=== PATIENT | male | born 1970 | race Caucasian/White ===

== ENCOUNTER 2024-02-15 15:00 | Emergency (ER) | payer OTHER, SELFPAY ==
--- NOTE | ~2024-02-15 | US_ITS ---
EXAMINATION: US TRIPLEX UPPER EXTREMITY, RIGHT CLINICAL INFORMATION: Redness, pain COMPARISON: None available. TECHNIQUE: Color-flow triplex imaging with spectral analysis and compression Doppler was performed on the right upper extremity. FINDINGS: The right internal jugular, subclavian, and axillary veins are patent and free of thrombus. The imaged segment of the right brachiocephalic vein is patent. Spectral doppler waveforms are normal. The brachial, basilic, radial, and ulnar veins are patent and compressible. There is noncompressible thrombus in the proximal and mid cephalic vein. US/US venous duplex UE RT IMPRESSION: 1. No evidence of deep venous thrombosis involving the right upper extremity. 2. Superficial thrombophlebitis with noncompressible thrombus in the proximal and mid cephalic vein. Electronically signed by: Gurmeet Tapia MD 02/15/2024 04:39 PM EDT
[2024-02-15 15:09] VITALS: BP 100/76; PULSE 100; RESP 19; TEMP 36.1; O2SAT 97; BMI 23.7
--- NOTE | 2024-02-15 15:09 | ED_ITS ---
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 He reports some irritation to the right bicep for the last several days but did not notice the bump until last night. He denies any injury. Pain is worse with palpation, none at rest. He recently had blood work done in both his right AC and left AC area and has bruising to his arm. He denies any chest pain or shortness of breath. He is not on anticoagulation but takes a daily aspirin. MD Complaint: extremity swelling Onset (ago): day(s) Pain Consistency: constant Location: right and upper extremity Radiation: distal Relieving factors: nothing Exacerbating factors: nothing Related Data Allergies Allergy/AdvReac Type Severity Reaction Status Date / Time NORBERTO Inhibitors Allergy Cough Verified 02/15/24 15:10 Review of Systems Review of Systems: Yes all other systems are reviewed and are negative PMFSH Social History Social History Advance Directives: No Advance Directives Information Provided: No Do you have a plan to hurt others: No Plan Physical Exam Vital Signs: Vital Signs: Last Vital Signs Temp 97.9 F 02/15/24 18:02 Pulse 89 02/15/24 18:02 Resp 18 02/15/24 18:02 BP 111/75 02/15/24 18:02 Pulse Ox 99 02/15/24 18:02 O2 Del Method Room Air 02/15/24 18:02 BMI result Body Mass Index 23.7 Appearance: Alert. Oriented X3. No acute distress. HEENT: normal inspection CVS: Normal heart rate and rhythm. Pulses normal. Respiratory: No respiratory distress. CV: Regular rate and rhythm, no murmur Skin: Skin warm and dry. Normal skin color. Normal skin turgor. No rashes. Extremities: Right distal biceps with a tender, firm, erythematous and warm area of approximately 2-3 cm, mild induration. No fluctuance. Neurovascularly intact distally. No swelling of the arm. Neuro: Oriented X 3. Grossly normal, nonfocal Course Course Course Narrative: This is a Rapid Medical Examination (RME) performed by Jen Mccormack PA-C in triage. Full HPI, ROS, assessment and treatment plan per primary provider in the Main ED. 53 yo male with history of heart transplant in September 2023 at [facility] who presents to the ER for evaluation of a tender bump on the right bicep area. tender, erythematous area on the right bicep with superficial mass. Plan: US RUE r/o DVT Medical Decision Making Medical Decision Making MDM Narrative: 53-year-old male with history of heart transplant in September presents to the ER for evaluation of a mildly tender, erythematous mass to the distal right biceps that started a couple of days ago, the mass noted last night. Exam is consistent with superficial thrombophlebitis. Ultrasound was done which confirmed this. No evidence of deep vein thrombosis. We discussed the results and management including warm compresses, compression, elevation, NSAIDs. He is going to discuss the results with his transplant doctor tomorrow. Place an Norberto wrap for compression and support. Comfortable discharge home with supportive care and outpatient follow-up. Differential Diagnosis Differential Diagnoses: The differential diagnosis associated with the presentation includes Cellulitis, superficial thrombophlebitis, DVT Admission/Observation Consideration of admission/observation: Escalation of care including admission/observation considered Independent Interpretation I performed an independent interpretation of an: Ultrasound Interpretation: No DVT appreciated Radiology Impression Discussion of test interpretation with radiology: I have reviewed the radiologist's reading. Radiologist Impression: US/US venous duplex UE RT IMPRESSION: 1. No evidence of deep venous thrombosis involving the right upper extremity. 2. Superficial thrombophlebitis with noncompressible thrombus in the proximal and mid cephalic vein. Prescription Management I considered prescription management with: Pain Medication and Antibiotic Chronic Conditions Patient?s care impacted by: Other (Immunocompromised due to heart transplant) Critical Care Time Critical Care Time Critical Care Time: No Discharge Plan Discharge Clinical Impression: Superficial thrombophlebitis Qualifiers: Superficial thrombophlebitis-Involved body area: upper extremity Laterality: right Qualified Code(s): I80.8 - Phlebitis and thrombophlebitis of other sites Patient Disposition: Home, Self-Care Instructions: Superficial Thrombophlebitis (ED) Additional Instructions: Your ultrasound today showed a superficial blood clot in the cephalic vein. There were no blood clots in the deep venous system. Treatment is warm compresses, elevation, compression. Talk to your doctor about ability to use NSAIDs like ibuprofen, Aleve, Motrin. It can help with pain and swelling. Follow-up with your transplant providers regarding further management. If you develop new or worsening symptoms call 911 or come back to the ER for further evaluation. EXAMINATION: US TRIPLEX UPPER EXTREMITY, RIGHT CLINICAL INFORMATION: Redness, pain COMPARISON: None available. TECHNIQUE: Color-flow triplex imaging with spectral analysis and compression Doppler was performed on the right upper extremity. FINDINGS: The right internal jugular, subclavian, and axillary veins are patent and free of thrombus. The imaged segment of the right brachiocephalic vein is patent. Spectral doppler waveforms are normal. The brachial, basilic, radial, and ulnar veins are patent and compressible. There is noncompressible thrombus in the proximal and mid cephalic vein. US/US venous duplex UE RT IMPRESSION: 1. No evidence of deep venous thrombosis involving the right upper extremity. 2. Superficial thrombophlebitis with noncompressible thrombus in the proximal and mid cephalic vein. Interventions: ED Discharge Assessment Last Done: 02/15/24 18:02 Discharge Date/Time: 02/15/24 18:03 Print Language: Greenlandic
[2024-02-15 17:39] VITALS: BP 111/75; PULSE 89; RESP 18; TEMP 36.6; O2SAT 99
[2024-02-15 18:02] VITALS: BP 111/75; PULSE 89; RESP 18; TEMP 36.6; O2SAT 99
== END 2024-02-15 18:03 | disposition home or self-care (01) ==
PROVIDERS: Emergency Provider Emergency Medicine; PCP Internal Medicine Geriatric Medicine
DX: I80.8 Phlebitis and thrombophlebitis of other sites (principal); M79.621 Pain in right upper arm
CPT/HCPCS: 93971; 99283; 99284

== ENCOUNTER 2024-03-11 14:41 | Outpatient (REF) | payer OTHER, SELFPAY ==
[2024-03-11 15:36] LABS: Anion Gap 15 (12-20); Blood Urea Nitrogen 37 mg/dL (9-16); Calcium 9.7 mg/dL (8.4-10.2); Carbon Dioxide 19 mmol/L (22-29); Chloride 112 mmol/L (96-108); Estimated Glomerular Filt Rate 46; Glucose Random 132 mg/dL (60-115); Magnesium 1.7 mg/dL (1.6-2.6); Potassium 4.4 mmol/L (3.3-5.1); Sodium 142 mmol/L (135-145)
== END 2024-03-11 14:42 | disposition home or self-care (01) ==
LOC: HO.LAB 14:41
PROVIDERS: PCP Internal Medicine; Visit Provider Nurse Practitioner
DX: Z94.1 Heart transplant status (principal)
CPT/HCPCS: 36415; 80048; 83735

== ENCOUNTER 2024-03-18 10:25 | Outpatient (REF) | payer OTHER, SELFPAY ==
[2024-03-18 13:00] LABS: Alanine Aminotransferase 13 U/L (0-40); Albumin Level 4.3 g/dL (3.5-5.0); Alkaline Phosphatase 34 U/L (39-117); Anion Gap 12 (12-20); Aspartate Amino Transferase 18 U/L (5-37); B Type Natriuretic Peptide 51 pg/mL (<100); Bilirubin Total 0.5 mg/dL (0.0-1.0); Blood Urea Nitrogen 27 mg/dL (9-16); Calcium 9.3 mg/dL (8.4-10.2); Carbon Dioxide 21 mmol/L (22-29); Chloride 113 mmol/L (96-108); Estimated Glomerular Filt Rate 57; Glucose Random 88 mg/dL (60-115); Potassium 3.6 mmol/L (3.3-5.1); Sodium 142 mmol/L (135-145); Total Protein 6.4 g/dL (6.5-8.0)
[2024-03-19 11:58] LABS: Tacrolimus Prograf 11.3 mcg/L
== END 2024-03-18 10:26 | disposition home or self-care (01) ==
LOC: HO.LAB 10:25
PROVIDERS: Absent Provider Internal Medicine Advanced Heart Failure and Transplant Cardiology; PCP Internal Medicine; Visit Provider Nurse Practitioner Adult Health
DX: I50.9 Heart failure, unspecified (principal)
CPT/HCPCS: 36415; 80053; 80197; 83880

== ENCOUNTER 2024-04-13 11:07 | Outpatient (REF) | payer OTHER, SELFPAY ==
[2024-04-13 11:32] LABS: MANUAL DIFF FLAG NO
[2024-04-13 11:50] LABS: Basophils Percent Auto 0.9 % (0-2); Eosinophils Absolute Auto 0.1 X10*3/uL (0.0-0.4); Eosinophils Percent Auto 1.5 % (0-4); Hematocrit 32.5 % (42.0-52.0); Hemoglobin 11.1 g/dl (14.0-18.0); Imm Gran Abs Auto 0.07 X10*3/uL (0.00-0.03); Imm Gran Pct Auto 2.1 % (0.0-0.4); Lymphocytes Absolute Auto 1.5 X10*3/uL (1.2-4.9); Lymphocytes Percent Auto 46.6 % (20-40); Mean Corpuscular HGB Conc 34.2 g/dl (31.0-36.0); Mean Corpuscular Hemoglobin 28.5 pg (27.0-33.0); Mean Corpuscular Volume 83.5 fL (80.0-98.0); Mean Platelet Volume 9.9 fL (9.4-12.4); Monocytes Absolute Auto 0.2 X10*3/uL (0.1-1.2); Monocytes Percent Auto 7.1 % (2-11); Neutrophils Absolute Auto 1.4 x10*3/uL (2.0-8.3); Neutrophils Percent Auto 41.8 % (45-73); Platelet Count 213 X10*3/uL (160-400); Red Blood Count 3.89 X10*6/uL (4.60-5.80); Red Cell Distribution Width 14.6 % (11.0-16.0); White Blood Count 3.3 X10*3/uL (4.8-10.8)
[2024-04-13 12:31] LABS: Anion Gap 14 (12-20); Blood Urea Nitrogen 30 mg/dL (9-16); Calcium 9.7 mg/dL (8.4-10.2); Carbon Dioxide 23 mmol/L (22-29); Chloride 109 mmol/L (96-108); Estimated Glomerular Filt Rate 45; Glucose Random 101 mg/dL (60-115); Magnesium 1.6 mg/dL (1.6-2.6); Potassium 3.7 mmol/L (3.3-5.1); Sodium 142 mmol/L (135-145)
[2024-04-14 17:02] LABS: Tacrolimus Prograf 11.5 mcg/L
== END 2024-04-13 11:08 | disposition home or self-care (01) ==
LOC: HO.LAB 11:07
PROVIDERS: PCP Internal Medicine; Visit Provider Nurse Practitioner
DX: Z94.1 Heart transplant status (principal)
CPT/HCPCS: 36415; 80048; 80197; 83735; 85025

== ENCOUNTER 2024-05-02 11:38 | Outpatient (REF) | payer OTHER, SELFPAY ==
[2024-05-02 12:22] LABS: Hematocrit 33.4 % (42.0-52.0); Hemoglobin 11.4 g/dl (14.0-18.0); Mean Corpuscular HGB Conc 34.1 g/dl (31.0-36.0); Mean Corpuscular Hemoglobin 28.8 pg (27.0-33.0); Mean Corpuscular Volume 84.3 fL (80.0-98.0); Mean Platelet Volume 10.5 fL (9.4-12.4); Platelet Count 197 X10*3/uL (160-400); Red Blood Count 3.96 X10*6/uL (4.60-5.80); Red Cell Distribution Width 14.3 % (11.0-16.0)
[2024-05-02 12:47] LABS: Anion Gap 14 (12-20); Blood Urea Nitrogen 28 mg/dL (9-16); Calcium 9.4 mg/dL (8.4-10.2); Carbon Dioxide 21 mmol/L (22-29); Chloride 109 mmol/L (96-108); Estimated Glomerular Filt Rate 50; Glucose Random 86 mg/dL (60-115); Potassium 3.4 mmol/L (3.3-5.1); Sodium 141 mmol/L (135-145)
[2024-05-02 13:21] LABS: Band Neutrophils Percent 3 % (3-5); Eosinophils Percent Manual 1 % (0-4); Lymphocytes Absolute Manual 1.2 X10*3/uL (1.2-4.9); Lymphocytes Percent Manual 40 % (20-40); Monocytes Absolute Manual 0.2 X10*3/uL (0.1-1.2); Monocytes Percent Manual 5 % (2-11); Neutrophils Absolute Manual 1.6 X10*3/uL (2.0-8.3); Neutrophils Percent Manual 51 % (45-73); RBC Morphology NOTED
[2024-05-02 13:22] LABS: Ovalocytes 1+ (5-14) /OIF; Platelet Estimate NORMAL (NORMAL); Platelet Morphology Comment NORMAL
[2024-05-03 08:49] LABS: Tacrolimus Prograf 9.7 mcg/L
== END 2024-05-02 11:39 | disposition home or self-care (01) ==
LOC: HO.LAB 11:38
PROVIDERS: PCP Internal Medicine; Visit Provider Nurse Practitioner Adult Health
DX: Z94.1 Heart transplant status (principal); Z79.899 Other long term (current) drug therapy
CPT/HCPCS: 36415; 80048; 80197; 85007; 85025; 85027

== ENCOUNTER 2024-05-30 11:36 | Outpatient (REF) | payer OTHER, SELFPAY ==
[2024-05-30 12:26] LABS: Mean Corpuscular HGB Conc 33.3 g/dl (31.0-36.0); Mean Corpuscular Hemoglobin 28.6 pg (27.0-33.0); Mean Corpuscular Volume 85.9 fL (80.0-98.0); Platelet Count 204 X10*3/uL (160-400); Red Blood Count 3.84 X10*6/uL (4.60-5.80); Red Cell Distribution Width 14.6 % (11.0-16.0); White Blood Count 2.7 X10*3/uL (4.8-10.8)
[2024-05-30 12:50] LABS: Alanine Aminotransferase 13 U/L (0-40); Albumin Level 4.2 g/dL (3.5-5.0); Alkaline Phosphatase 30 U/L (39-117); Anion Gap 13 (12-20); Aspartate Amino Transferase 17 U/L (5-37); Bilirubin Direct 0.2 mg/dL (0.0-0.5); Bilirubin Total 0.7 mg/dL (0.0-1.0); Blood Urea Nitrogen 24 mg/dL (9-16); Calcium 8.9 mg/dL (8.4-10.2); Carbon Dioxide 26 mmol/L (22-29); Chloride 110 mmol/L (96-108); Cholesterol 159 mg/dL (<200); Estimated Glomerular Filt Rate > 60; Glucose Random 102 mg/dL (60-115); HDL Cholesterol 42 mg/dL (>40); LDL Cholesterol Calculated 91 mg/dL (<100); Magnesium 1.5 mg/dL (1.6-2.6); Potassium 4.1 mmol/L (3.3-5.1); Sodium 145 mmol/L (135-145); Total Protein 6.3 g/dL (6.5-8.0); Triglycerides 132 mg/dL (<150)
[2024-05-30 13:07] LABS: Band Neutrophils Percent 3 % (3-5); Basophils Abs Manual 0.1 X10*3/uL (0.0-0.2); Basophils Percent Manual 2 % (0-2); Eosinophils Percent Manual 1 % (0-4); Lymphocytes Absolute Manual 1.5 X10*3/uL (1.2-4.9); Lymphocytes Percent Manual 54 % (20-40); Monocytes Absolute Manual 0.1 X10*3/uL (0.1-1.2); Monocytes Percent Manual 2 % (2-11); Neutrophils Absolute Manual 1.1 X10*3/uL (2.0-8.3); Neutrophils Percent Manual 38 % (45-73)
[2024-05-30 13:09] LABS: Ovalocytes 1+ (5-14) /OIF; Platelet Estimate NORMAL (NORMAL); Platelet Morphology Comment NORMAL; RBC Morphology NOTED
[2024-05-31 15:09] LABS: CMV DNA PCR Qn Source BLOOD; CMV DNA Qn PCR NOT DETECTED Log IU/mL (NOT DETECTED); CMV DNA Qn Real Time PCR NOT DETECTED (NOT DETECTED)
[2024-06-03 08:03] LABS: NT-proBNP 489 pg/mL (<125)
== END 2024-05-30 11:37 | disposition home or self-care (01) ==
LOC: HO.LAB 11:36
PROVIDERS: Nurse Practitioner; PCP Internal Medicine; Visit Provider Nurse Practitioner Adult Health
DX: Z94.1 Heart transplant status (principal)
CPT/HCPCS: 36415; 80048; 80061; 80076; 80197; 82550; 83735; 83880; 85007; 85027; 86644; 86645; 87497

== ENCOUNTER 2024-06-22 10:33 | Outpatient (REF) | payer OTHER, SELFPAY ==
[2024-06-22 12:07] LABS: Basophils Absolute Auto 0.1 X10*3/uL (0.0-0.2); Basophils Percent Auto 2.1 % (0-2); Eosinophils Absolute Auto 0.1 X10*3/uL (0.0-0.4); Eosinophils Percent Auto 2.1 % (0-4); Hematocrit 34.1 % (42.0-52.0); Hemoglobin 11.4 g/dl (14.0-18.0); Imm Gran Abs Auto 0.02 X10*3/uL (0.00-0.03); Imm Gran Pct Auto 0.8 % (0.0-0.4); Lymphocytes Absolute Auto 1.2 X10*3/uL (1.2-4.9); Lymphocytes Percent Auto 48.7 % (20-40); MANUAL DIFF FLAG SCAN; Mean Corpuscular HGB Conc 33.4 g/dl (31.0-36.0); Mean Corpuscular Hemoglobin 29.1 pg (27.0-33.0); Mean Platelet Volume 10.2 fL (9.4-12.4); Monocytes Absolute Auto 0.2 X10*3/uL (0.1-1.2); Monocytes Percent Auto 7.6 % (2-11); Neutrophils Absolute Auto 0.9 x10*3/uL (2.0-8.3); Neutrophils Percent Auto 38.7 % (45-73); Platelet Count 262 X10*3/uL (160-400); Red Blood Count 3.92 X10*6/uL (4.60-5.80); Red Cell Distribution Width 14.5 % (11.0-16.0); SCAN SMEAR FLAG 1
[2024-06-22 12:13] LABS: White Blood Count 2.4 X10*3/uL (4.8-10.8)
--- OUTSIDE RECORDS SUMMARY | 2024-06-22 12:20 | XMS_ITS | Clinical Summary ---
Author Organization [facility] Address [address] [place] [address] Care Team Providers Care Crew Truck Driver Name Role Phone Al Sy MD Primary Care Provider [phone] Social History Tobacco Use Types Packs/Day Years Used Date Smoking Tobacco: Never Assessed Sex and Gender Information Value Date Recorded Sex Assigned at Not on file Gender Identity Not on file Sexual Orientation Not on file Plan of Treatment Health Maintenance Due Date Last Done Comments Hepatitis C Virus Screening 1969 HIV Screening 1982 DTaP/Tdap/Td Vaccines (1 - Tdap) 1988 Hepatitis B Vaccines (1 of 3 - 19+ 3-dose series) 1988 Colonoscopy 2014 Pneumococcal Vaccines 50+ (1 of 1 - PCV) 2019 Zoster (Shingles) Vaccine (1 of 2) 2019 Influenza Vaccine 12/10/2023 COVID-19 Vaccine ( - 2023-2 5 season) 2024 Pneumococcal Vaccine: Pediat carmen (0-5 Years) and At-Risk Patients (6 to 49 Years) Aged Out No longer eligible b ased on patient's age to complete this topic Care Teams Crew Truck Driver Relationship Specialty Start Date End Date Al Sy MD [address] [place] [address] PCP - General Internal Medicine 08/15/23
[2024-06-22 12:30] LABS: Anion Gap 13 (12-20); Blood Urea Nitrogen 24 mg/dL (9-16); Calcium 8.6 mg/dL (8.4-10.2); Carbon Dioxide 18 mmol/L (22-29); Chloride 113 mmol/L (96-108); Estimated Glomerular Filt Rate 51; Glucose Random 85 mg/dL (60-115); Potassium 4.1 mmol/L (3.3-5.1); Sodium 140 mmol/L (135-145)
[2024-06-22 12:57] LABS: SLIDE REVIEW VERIFIED
[2024-06-23 17:38] LABS: Tacrolimus Prograf 10.8 mcg/L
== END 2024-06-22 10:34 | disposition home or self-care (01) ==
LOC: HO.LAB 10:33
PROVIDERS: PCP Internal Medicine; Visit Provider Nurse Practitioner Adult Health
DX: Z94.1 Heart transplant status (principal)
CPT/HCPCS: 36415; 80048; 80197; 85025

== ENCOUNTER 2024-07-14 10:27 | Outpatient (REF) | payer OTHER, SELFPAY ==
[2024-07-14 11:43] LABS: Anion Gap 12 (12-20); Blood Urea Nitrogen 20 mg/dL (9-16); Calcium 8.5 mg/dL (8.4-10.2); Carbon Dioxide 21 mmol/L (22-29); Chloride 112 mmol/L (96-108); Estimated Glomerular Filt Rate > 60; Glucose Random 89 mg/dL (60-115); Sodium 141 mmol/L (135-145)
[2024-07-14 12:18] LABS: Vitamin B12 806 pg/mL (200-900)
--- OUTSIDE RECORDS SUMMARY | 2024-07-14 12:27 | XMS_ITS | Clinical Summary ---
Author Organization [facility] Address [address] [place] [address] Care Team Providers Care Bullet Slugs Inspector Name Role Phone Al Sy MD Primary Care Provider [phone] Social History Tobacco Use Types Packs/Day Years [...] age to complete this topic Care Teams Bullet Slugs Inspector Relationship Specialty Start Date End Date Al Sy MD [address] [place] [address] PCP - General Internal Medicine 08/15/23
[2024-07-15 13:08] LABS: Tacrolimus Prograf 9.5 mcg/L
== END 2024-07-14 10:28 | disposition home or self-care (01) ==
LOC: HO.LAB 10:27
PROVIDERS: Visit Provider Nurse Practitioner
DX: Z94.1 Heart transplant status (principal); D64.9 Anemia, unspecified
CPT/HCPCS: 36415; 80048; 80197; 82607; 82746

== ENCOUNTER 2024-08-24 15:58 | Outpatient (REF) | payer OTHER, SELFPAY ==
[2024-08-24 16:15] LABS: MANUAL DIFF FLAG NO
[2024-08-24 17:10] LABS: Basophils Percent Auto 0.8 % (0-2); Eosinophils Absolute Auto 0.1 X10*3/uL (0.0-0.4); Eosinophils Percent Auto 3.3 % (0-4); Hemoglobin 11.2 g/dl (14.0-18.0); Imm Gran Abs Auto 0.04 X10*3/uL (0.00-0.03); Imm Gran Pct Auto 1.7 % (0.0-0.4); Lymphocytes Absolute Auto 0.9 X10*3/uL (1.2-4.9); Lymphocytes Percent Auto 35.8 % (20-40); Mean Corpuscular HGB Conc 32.9 g/dl (31.0-36.0); Mean Platelet Volume 10.6 fL (9.4-12.4); Monocytes Absolute Auto 0.2 X10*3/uL (0.1-1.2); Monocytes Percent Auto 7.5 % (2-11); Neutrophils Absolute Auto 1.2 x10*3/uL (2.0-8.3); Neutrophils Percent Auto 50.9 % (45-73); Platelet Count 218 X10*3/uL (160-400); Red Cell Distribution Width 13.2 % (11.0-16.0); SCAN SMEAR FLAG 1
[2024-08-24 17:21] LABS: White Blood Count 2.4 X10*3/uL (4.8-10.8)
--- OUTSIDE RECORDS SUMMARY | 2024-08-24 18:12 | XMS_ITS ---
Author Name [facility] Organization Unknown Encounters Encounter Type Encounter Reason Primary Diagnosis Location Date Ambulatory [facility] Care Team Organization Name Specialty Phone Email [facility] 08/16[facility]2023 [facility] 08/16/2023 07/27/2024 [facility] 08/16/2023
--- OUTSIDE RECORDS SUMMARY | 2024-08-24 18:12 | XMS_ITS | Clinical Summary ---
Author Organization [facility] Address [address] [place] [address] Care Team Providers Care Telephone Maintenance Mechanic Name Role Phone Al Sy MD Primary Care Provider [phone] Social History Tobacco Use Types Packs/Day Years Used Date Smoking Tobacco: Never Assessed Sex and Gender Information Value Date Recorded Sex Assigned at Not on file Legal Sex Male 9:10 AM EDT Gender Identity Not on file Sexual Orientation [...] 2) 2019 Influenza Vaccine 12/10/2023 COVID-19 Vaccine (1 - 2023-2 5 season) 2024 Pneumococcal Vaccine: Pediat carmen (0-5 Years) and At-Risk Patients (6 to 49 Years) Aged Out No longer eligible b ased on patient's age to complete this topic Insurance [facility] Care Teams Telephone Maintenance Mechanic Relationship Specialty Start Date End Date Al Sy MD [address] [place] [address] PCP - General Internal Medicine 08/15/23
== END 2024-08-24 15:59 | disposition home or self-care (01) ==
LOC: HO.LAB 15:58
PROVIDERS: PCP Internal Medicine; Visit Provider Nurse Practitioner
DX: D70.2 Other drug-induced agranulocytosis (principal)
CPT/HCPCS: 36415; 85025

== ENCOUNTER 2024-09-29 11:14 | Outpatient (REF) | payer OTHER, SELFPAY ==
--- OUTSIDE RECORDS SUMMARY | 2024-09-29 11:55 | XMS_ITS | Clinical Summary ---
Author Organization [facility] Address [address] [place] [address] Care Team Providers Care Precipitation Equipment Tender Name Role Phone Al Sy MD Primary Care Provider [phone] Social History Tobacco Use Types Packs/Day Years [...] - season) 2024 Influenza Vaccine 12/09/2024 Insurance [facility] Care Teams Precipitation Equipment Tender Relationship Specialty Start Date End Date Al Sy MD [address] [place] [address] PCP - General Internal Medicine 08/15/23
[2024-09-29 12:25] LABS: Anion Gap 14 (12-20); Blood Urea Nitrogen 28 mg/dL (9-16); Calcium 9.1 mg/dL (8.4-10.2); Carbon Dioxide 23 mmol/L (22-29); Chloride 110 mmol/L (96-108); Estimated Glomerular Filt Rate > 60; Glucose Random 91 mg/dL (60-115); Potassium 4.5 mmol/L (3.3-5.1); Sodium 142 mmol/L (135-145)
[2024-09-30 09:14] LABS: Tacrolimus Prograf 7.3 mcg/L
== END 2024-09-29 11:15 | disposition home or self-care (01) ==
LOC: HO.LAB 11:14
PROVIDERS: PCP Internal Medicine; Visit Provider Nurse Practitioner Adult Health
DX: Z94.1 Heart transplant status (principal); Z79.899 Other long term (current) drug therapy
CPT/HCPCS: 36415; 80048; 80197

== ENCOUNTER 2024-10-06 10:22 | Outpatient (REF) | payer OTHER, SELFPAY ==
--- OUTSIDE RECORDS SUMMARY | 2024-10-06 10:46 | XMS_ITS | Clinical Summary ---
Author Organization [facility] Address [address] [place] [address] Care Team Providers Care Netbackup Admin Name Role Phone Al Sy MD Primary Care Provider [phone] Social History Tobacco Use Types Packs/Day Years [...] - season) 2024 Influenza Vaccine 12/09/2024 Insurance [facility] Care Teams Netbackup Admin Relationship Specialty Start Date End Date Al Sy MD [address] [place] [address] PCP - General Internal Medicine 08/15/23
[2024-10-06 11:02] LABS: Hematocrit 31.4 % (42.0-52.0); Hemoglobin 10.7 g/dl (14.0-18.0); Mean Corpuscular HGB Conc 34.1 g/dl (31.0-36.0); Mean Corpuscular Volume 82.2 fL (80.0-98.0); Mean Platelet Volume 10.2 fL (9.4-12.4); Platelet Count 221 X10*3/uL (160-400); Red Blood Count 3.82 X10*6/uL (4.60-5.80); Red Cell Distribution Width 13.9 % (11.0-16.0); White Blood Count 3.3 X10*3/uL (4.8-10.8)
[2024-10-06 11:32] LABS: Atypical Lymph Absolute Manual 0.1 x10*3/uL; Atypical Lymphs Percent Manual 3 % (0-6); Band Neutrophils Percent 9 % (3-5); Lymphocytes Absolute Manual 1.4 X10*3/uL (1.2-4.9); Lymphocytes Percent Manual 41 % (20-40); Metamyelocytes Absolute 0.1 X10*3/uL; Metamyelocytes Percent 2 %; Monocytes Absolute Manual 0.2 X10*3/uL (0.1-1.2); Monocytes Percent Manual 5 % (2-11); Myelocytes Percent 1 %; Neutrophils Absolute Manual 1.6 X10*3/uL (2.0-8.3); Neutrophils Percent Manual 39 % (45-73)
[2024-10-06 11:34] LABS: RBC Morphology NOTED
[2024-10-06 11:35] LABS: Ovalocytes 1+ (5-14) /OIF; Platelet Estimate NORMAL (NORMAL); Platelet Morphology Comment NORMAL
[2024-10-07 19:49] LABS: CMV DNA Qn PCR NOT DETECTED Log IU/mL (NOT DETECTED); CMV DNA Qn Real Time PCR NOT DETECTED (NOT DETECTED)
== END 2024-10-06 10:23 | disposition home or self-care (01) ==
LOC: HO.LAB 10:22
PROVIDERS: PCP Internal Medicine; Visit Provider Nurse Practitioner
DX: Z94.1 Heart transplant status (principal)
CPT/HCPCS: 36415; 85007; 85025; 85027; 87497

== ENCOUNTER 2024-10-24 06:23 | Day surgery (SDC) | payer OTHER, SELFPAY ==
--- OUTSIDE RECORDS SUMMARY | 2024-09-27 09:42 | XMS_ITS | Clinical Summary ---
Author Organization [facility] Address [address] [place] [address] Care Team Providers Care Radio Time Salesperson Name Role Phone Al Sy MD Primary Care Provider Social History Tobacco Use Types Packs/Day Years [...] (1 of 3 - 19+ 3-dose series) 06/11 Colonoscopy 2014 Pneumococcal Vaccines 50+ (1 of 1 - PCV) 2019 Zoster (Shingles) Vaccine (1 of 2) 2019 COVID-19 Vaccine ( - season) 2024 Influenza Vaccine 12/09/2024 Insurance [facility] Care Teams Radio Time Salesperson Relationship Specialty Start Date End Date Al Sy MD [address] [place] [address] PCP - General Internal Medicine 08/15/23
[2024-10-18 07:19] VITALS: BMI 23.1
[2024-10-19 12:04] VITALS: BMI 22.4
--- NOTE | 2024-10-21 10:23 | HO.ANESPROP2 ---
Documented by User: Stephania Meehan NP 10/21/24 10:35 HPI - Anesthesia Eval Consult details Narrative: 54yo M for Left Cataract Extraction IOL Insertion No previous cataract on record s/p cardiac transplant 09/2023. Follows [facility] (stable at 09/2024 office visit) and [facility] HF clinic. Stable at [facility] Preop Clinic appt PMFSH Past Medical History Medical History (Updated 10/19/24 @ 11:51 by Karyn Duenas RN) Diarrhea Low blood pressure Onychomycosis Thyroid disease HTN (hypertension) Hypercholesterolemia Dermatitis Depression Cardiomyopathy Bilateral cataracts Atrial fibrillation Surgical History Surgical History (Updated 10/20/24 @ 11:46 by Karyn Duenas RN) Hx of cardiac catheterization Hx of tonsillectomy H/O colonoscopy H/O cardiac radiofrequency ablation Hx of heart transplant Social History Social History Are you a primary care program resident to a significant other at home: No Do you presently have visiting nurse or other home services: No Patient Tobacco Use Status: Never used Tobacco Use of substances other than those prescribed or required for medical reasons: No Have you been hit, kicked, punched, or otherwise hurt by someone within the past year? If so, by whom?: No Are you DNR?: No Advance Directives: No Advance Directives Information Provided: Yes Advance Directives on File: No Poor oral hygiene: No Meds Allergies Allergy/AdvReac Type Severity Reaction Status Date / Time NILS Inhibitors Allergy Cough Verified 02/15/24 15:10 Home Medications ?Medication ?Instructions ?Recorded ?Confirmed ?Last Taken ?Type ammonium lactate 12 % topical cream 1 appl topical BID 10/18/24 10/19/24 Unknown History ascorbic acid (vitamin C) 500 mg 500 mg PO BID 10/18/24 10/19/24 Unknown History tablet (Vitamin C) aspirin 81 mg tablet,delayed 81 mg PO DAILY 10/18/24 10/19/24 Unknown History release cholecalciferol (vitamin D3) 50 50 mcg PO DAILY 10/18/24 10/19/24 Unknown History mcg (2,000 unit) capsule (Vitamin D3) fluoxetine 40 mg capsule 40 mg PO DAILY 10/18/24 10/19/24 Unknown History levothyroxine 75 mcg tablet 75 mcg PO DAILY 10/18/24 10/19/24 10/24/24 History (Synthroid) loperamide 1 mg/5 mL oral liquid 2 mg PO QID PRN Diarrhea 10/18/24 10/19/24 Unknown History mycophenolate sodium 360 mg 720 mg PO BID 10/18/24 10/19/24 10/24/24 History tablet,delayed release rosuvastatin 20 mg tablet (Crestor) 20 mg PO BEDTIME 10/18/24 10/19/24 Unknown History vitamin E 268 mg (400 unit) capsule 268 mg PO DAILY 10/18/24 10/19/24 Unknown History tacrolimus 1 mg capsule, 4 mg PO Q12H 10/19/24 10/19/24 10/24/24 History immediate-release Exam Height,Weight and Vital Signs: Height 5 ft 11.97 in Weight 74.843 kg Narrative Narrative: Annual cardiac cath 09/2024: no severe epicardial CAD ECHO 09/2024 (full report on chart) LV small. EF 60-65%. No WMA Trace to mild MR EKG 09/2024 NSR @ 88 Low volt QRS Inc RBBB Assessment and Plan Assessment Anesthesia Assessment: Chart Reviewed Documented by User: Wendy Blakely MD 10/24/24 07:11 [facility] Past Medical History Medical History (Updated 10/19/24 @ 11:51 by Karyn Duenas RN) Diarrhea Low blood pressure Onychomycosis Thyroid disease HTN (hypertension) Hypercholesterolemia Dermatitis Depression Cardiomyopathy Bilateral cataracts Atrial fibrillation Family History Family history of problems with anesthesia: No Surgical History Surgical History (Updated 10/20/24 @ 11:46 by Karyn Duenas RN) Hx of cardiac catheterization Hx of tonsillectomy H/O colonoscopy H/O cardiac radiofrequency ablation Hx of heart transplant History of Problems with Anesthesia: No Social History Social History Are you a primary care program resident to a significant other at home: No Do you presently have visiting nurse or other home services: No Patient Tobacco Use Status: Never used Tobacco Use of substances other than those prescribed or required for medical reasons: No Have you been hit, kicked, punched, or otherwise hurt by someone within the past year? If so, by whom?: No Are you DNR?: No Advance Directives: No Advance Directives Information Provided: Yes Advance Directives on File: No Poor oral hygiene: No Meds Allergies Allergy/AdvReac Type Severity Reaction Status Date / Time NILS Inhibitors Allergy Cough Verified 02/15/24 15:10 Home Medications ?Medication ?Instructions ?Recorded ?Confirmed ?Last Taken ?Type ammonium lactate 12 % topical cream 1 appl topical BID 10/18/24 10/19/24 Unknown History ascorbic acid (vitamin C) 500 mg 500 mg PO BID 10/18/24 10/19/24 Unknown History tablet (Vitamin C) aspirin 81 mg tablet,delayed 81 mg PO DAILY 10/18/24 10/19/24 Unknown History release cholecalciferol (vitamin D3) 50 50 mcg PO DAILY 10/18/24 10/19/24 Unknown History mcg (2,000 unit) capsule (Vitamin D3) fluoxetine 40 mg capsule 40 mg PO DAILY 10/18/24 10/19/24 Unknown History levothyroxine 75 mcg tablet 75 mcg PO DAILY 10/18/24 10/19/24 10/24/24 History (Synthroid) loperamide 1 mg/5 mL oral liquid 2 mg PO QID PRN Diarrhea 10/18/24 10/19/24 Unknown History mycophenolate sodium 360 mg 720 mg PO BID 10/18/24 10/19/24 10/24/24 History tablet,delayed release rosuvastatin 20 mg tablet (Crestor) 20 mg PO BEDTIME 10/18/24 10/19/24 Unknown History vitamin E 268 mg (400 unit) capsule 268 mg PO DAILY 10/18/24 10/19/24 Unknown History tacrolimus 1 mg capsule, 4 mg PO Q12H 10/19/24 10/19/24 10/24/24 History immediate-release Exam Airway Mallampati Class: II TM Dist: >3cm Neck ROM: Full Heart: rrr Lungs: cta Assessment and Plan Assessment Anesthesia Assessment: Anesthesia Plan Discussed Final Anesthetic Review Family History of Problems with Anesthesia: No History of Problems with Anesthesia: No NPO: Yes ASA Class: III Final Preanesthetic Review: No Changes in Pt Med Stat, Meds/Allgs Chart Reviewed and Consent Obtained/Reviewed Patient Risk: Low Procedure Risk: Low Anesthetic Plan Anesthetic Plan: MAC: Disposition: Standard PACU
[2024-10-24 06:50] VITALS: BP 105/67; PULSE 91; RESP 20; TEMP 35.9; O2SAT 98
[2024-10-24] MEDS: Tropicamide 1 % Ophth Sol 3 ML BTL 1 DROP EYE-LEFT ×3 (06:58→07:00)
[2024-10-24] MEDS: Cyclopentolate 1 % Ophth Sol 2 ML DRPBTL 1 DROP EYE-LEFT ×3 (06:58→07:00)
[2024-10-24] MEDS: Lactated Ringers 500 ML 50 ML IV (06:58)
[2024-10-24] MEDS: Tetracaine HCl/PF 0.5% Oph Sol 4 ML DROPS 1 DROP EYE-LEFT (06:58)
[2024-10-24] MEDS: Phenylephrine HCL 2.5% Oph SoL 2 ML BOTTLE 1 DROP EYE-LEFT ×3 (06:58→07:00)
[2024-10-24] MEDS: Ketorolac Tromethamine 0.5% Op 5 ML DROPS 1 DROP EYE-LEFT ×2 (06:58→06:59)
--- NOTE | 2024-10-24 07:52 | MHC.SHP ---
Pre-Procedural Eval Section A - 24 Hr Update-Section A only Date of Service: 10/24/24 The patient is an INPATIENT: No Changes since office visit: No Cold of Flu in the past 2 weeks, No New Medical Problems, No Changes in Medication and No Patient answered all questions The patient has been examined within 24 hours of the surgical procedure. The History & Physical has been completed within 30 days and I have reviewed it.: Yes Section B - Complete if H&P > 30 days Chief Complaint: Age-related nuclear cataract, left eye Allergies: Allergies Allergy/AdvReac Type Severity Reaction Status Date / Time NILS Inhibitors Allergy Cough Verified 02/15/24 15:10 Plan Diagnosis/Plan: Unchanged I have reviewed the history and physical and performed a pertinent physical examination on my patient. No changes have occurred unless specified. Time Spent With Patient Time: Total time managing care of this patient today ____ minutes.
--- NOTE | 2024-10-24 07:53 | HO.PNOPHT ---
Ophthalmology Procedure Procedure Date of Service: 10/24/24 Ophthalmology Viscoelastic: Healon Duet Dual Pack Pro Ophthalmology Lenses: IOL Acrysof MP - [id number] (19.5) Procedure Notes: PREOPERATIVE DIAGNOSIS: Decreased visual acuity left eye secondary to cataract POSTOPERATIVE DIAGNOSIS: Same PROCEDURE: Left cataract extraction with intraocular lens insertion SURGEON: Luis Manuel Emanuel M.D. ANESTHESIA: Topical/MAC ESTIMATED BLOOD LOSS: None COMPLICATIONS: None After obtaining informed consent, the patient was brought to the operation room suite and placed in the supine position. After adequate sedation per anesthesia, topical drops of Tetracaine were given to the left eye. The eye was then prepped and draped in the usual sterile fashion. The operating room microscope was then positioned over the operative eye and a lid speculum placed. A paracentesis was created. Viscoelastic was then instilled into the anterior chamber. A three plane incision was then created temporally, utilizing a 2.85 mm keratome. Capsulotomy forceps were then utilized to create a circular tear capsulotomy. Hydrodissection and hydrodelineation were carried out until adequate mobilization of the nucleus occurred. Phacoemulsification was then utilized to remove the dense central nucleus followed by removal of the cortical material utilizing the automated aspiration irrigation unit. Viscoat elastic was instilled into the posterior capsular bag followed by placement of a posterior chamber intraocular lens without difficulty. The residual Viscoat elastic was then removed utilizing the automated IA machine. The wound was check and found to be watertight. The patient tolerated the procedure well and the lid speculum was removed. Intracameral injection of Vigamox 0.1 mL followed by a subtenon injection of Kenalog-40 0.2 mL were administered. The patient will be seen in the a.m.
[2024-10-24 08:18] VITALS: BP 104/67; PULSE 86; RESP 16; TEMP 36.2; O2SAT 98
[2024-10-25 20:48] LABS: CMV DNA Qn PCR NOT DETECTED Log IU/mL (NOT DETECTED); CMV DNA Qn Real Time PCR NOT DETECTED (NOT DETECTED)
== END 2024-10-24 08:37 | disposition home or self-care (01) ==
PROVIDERS: Nurse Practitioner Adult Health; PCP Internal Medicine; Visit Provider Ophthalmology
PROC: (CPT 66985; principal; 2024-10-24 08:00)
DX: H25.12 Age-related nuclear cataract, left eye (principal); H52.4 Presbyopia; H35.09 Other intraretinal microvascular abnormalities; H25.043 Posterior subcapsular polar age-related cataract, bilateral; I95.9 Hypotension, unspecified; Z94.1 Heart transplant status; I48.91 Unspecified atrial fibrillation; I10 Essential (primary) hypertension; E78.00 Pure hypercholesterolemia, unspecified; I42.8 Other cardiomyopathies; Z79.82 Long term (current) use of aspirin; Z79.899 Other long term (current) drug therapy
CPT/HCPCS: 66984; 36415; 87497; J2250; J3301; V2630

== ENCOUNTER 2024-11-07 06:36 | Outpatient (REF) | payer OTHER, SELFPAY ==
[2024-11-08 21:43] LABS: Cytomegalovirus Ab IgG <0.60 U/mL; Cytomegalovirus Ab IgM <30.00 AU/mL
== END 2024-11-07 06:37 | disposition home or self-care (01) ==
LOC: HO.LAB 06:36
PROVIDERS: PCP Internal Medicine; Visit Provider Nurse Practitioner
DX: Z94.1 Heart transplant status (principal)
CPT/HCPCS: 36415; 86644; 86645

== ENCOUNTER 2024-11-07 06:40 | Day surgery (SDC) | payer OTHER, SELFPAY ==
--- OUTSIDE RECORDS SUMMARY | 2024-09-27 13:12 | XMS_ITS | Clinical Summary ---
Author Organization [facility] Address [address] [place] [address] Care Team Providers Care Track Repair Worker Name Role Phone Al Sy MD Primary Care Provider [phone] Social History Tobacco Use Types Packs/Day Years [...] - season) 2024 Influenza Vaccine 12/09/2024 Insurance [facility] Care Teams Track Repair Worker Relationship Specialty Start Date End Date Al Sy MD [address] [place] [address] PCP - General Internal Medicine 08/15/23
[2024-10-18 07:34] VITALS: BMI 23.1
[2024-10-19 12:10] VITALS: BMI 22.4
--- NOTE | 2024-11-03 14:43 | HO.ANESPROP2 ---
Documented by User: Stephania Meehan NP 11/03/24 14:55 HPI - Anesthesia Eval Consult details Narrative: 54yo M for Right Cataract Extraction IOL Insertion Left eye 10/24/24: [facility]az 2 s/p cardiac transplant 09/2023. Follows [facility] (stable at 09/2024 office visit) and [facility] clinic. Stable at [facility] appt PMFSH Past Medical History Medical History Diarrhea Low blood pressure Onychomycosis Thyroid disease HTN (hypertension) Hypercholesterolemia Dermatitis Depression Cardiomyopathy Bilateral cataracts Atrial fibrillation Family History Family history of problems with anesthesia: No Surgical History Surgical History Hx of cardiac catheterization Hx of tonsillectomy H/O colonoscopy H/O cardiac radiofrequency ablation Hx of heart transplant History of Problems with Anesthesia: No Social History Social History Are you a primary dog daycare provider to a significant other at home: No Do you presently have visiting nurse or other home services: No Patient Tobacco Use Status: Never used Tobacco Use of substances other than those prescribed or required for medical reasons: No Have you been hit, kicked, punched, or otherwise hurt by someone within the past year? If so, by whom?: No Are you DNR?: No Advance Directives: No Advance Directives Information Provided: Yes Advance Directives on File: No Poor oral hygiene: No Meds Allergies Allergy/AdvReac Type Severity Reaction Status Date / Time NILS Inhibitors Allergy Cough Verified 02/15/24 15:10 Home Medications ?Medication ?Instructions ?Recorded ?Confirmed ?Last Taken ?Type ammonium lactate 12 % topical cream 1 appl topical BID 10/18/24 10/19/24 Unknown History ascorbic acid (vitamin C) 500 mg 500 mg PO BID 10/18/24 10/19/24 Unknown History tablet (Vitamin C) aspirin 81 mg tablet,delayed 81 mg PO DAILY 10/18/24 10/19/24 Unknown History release cholecalciferol (vitamin D3) 50 50 mcg PO DAILY 10/18/24 10/19/24 Unknown History mcg (2,000 unit) capsule (Vitamin D3) fluoxetine 40 mg capsule 40 mg PO DAILY 10/18/24 10/19/24 Unknown History levothyroxine 75 mcg tablet 75 mcg PO DAILY 10/18/24 10/19/24 10/24/24 History (Synthroid) loperamide 1 mg/5 mL oral liquid 2 mg PO QID PRN Diarrhea 10/18/24 10/19/24 Unknown History mycophenolate sodium 360 mg 720 mg PO BID 10/18/24 10/19/24 10/24/24 History tablet,delayed release rosuvastatin 20 mg tablet (Crestor) 20 mg PO BEDTIME 10/18/24 10/19/24 Unknown History vitamin E 268 mg (400 unit) capsule 268 mg PO DAILY 10/18/24 10/19/24 Unknown History tacrolimus 1 mg capsule, 4 mg PO Q12H 10/19/24 10/19/24 10/24/24 History immediate-release Exam Height,Weight and Vital Signs: Height 5 ft 11.97 in Weight 74.843 kg Narrative Narrative: Annual cardiac cath 09/2024: no severe epicardial CAD ECHO 09/2024 (full report on chart) LV small. EF 60-65%. No WMA Trace to mild MR EKG 09/2024 NSR @ 88 Low volt QRS Inc RBBB Assessment and Plan Assessment Anesthesia Assessment: Chart Reviewed Final Anesthetic Review Family History of Problems with Anesthesia: No History of Problems with Anesthesia: No Documented by User: Dora Anders MD 11/07/24 07:37 PMFSH Past Medical History Medical History Diarrhea Low blood pressure Onychomycosis Thyroid disease HTN (hypertension) Hypercholesterolemia Dermatitis Depression Cardiomyopathy Bilateral cataracts Atrial fibrillation Surgical History Surgical History Hx of cardiac catheterization Hx of tonsillectomy H/O colonoscopy H/O cardiac radiofrequency ablation Hx of heart transplant Social History Social History Are you a primary dog daycare provider to a significant other at home: No Do you presently have visiting nurse or other home services: No Patient Tobacco Use Status: Never used Tobacco Use of substances other than those prescribed or required for medical reasons: No Have you been hit, kicked, punched, or otherwise hurt by someone within the past year? If so, by whom?: No Are you DNR?: No Advance Directives: No Advance Directives Information Provided: Yes Advance Directives on File: No Poor oral hygiene: No Meds Allergies Allergy/AdvReac Type Severity Reaction Status Date / Time NILS Inhibitors Allergy Cough Verified 02/15/24 15:10 Home Medications ?Medication ?Instructions ?Recorded ?Confirmed ?Last Taken ?Type ammonium lactate 12 % topical cream 1 appl topical BID 10/18/24 10/19/24 Unknown History ascorbic acid (vitamin C) 500 mg 500 mg PO BID 10/18/24 10/19/24 Unknown History tablet (Vitamin C) aspirin 81 mg tablet,delayed 81 mg PO DAILY 10/18/24 10/19/24 Unknown History release cholecalciferol (vitamin D3) 50 50 mcg PO DAILY 10/18/24 10/19/24 Unknown History mcg (2,000 unit) capsule (Vitamin D3) fluoxetine 40 mg capsule 40 mg PO DAILY 10/18/24 10/19/24 Unknown History levothyroxine 75 mcg tablet 75 mcg PO DAILY 10/18/24 10/19/24 10/24/24 History (Synthroid) loperamide 1 mg/5 mL oral liquid 2 mg PO QID PRN Diarrhea 10/18/24 10/19/24 Unknown History mycophenolate sodium 360 mg 720 mg PO BID 10/18/24 10/19/24 10/24/24 History tablet,delayed release rosuvastatin 20 mg tablet (Crestor) 20 mg PO BEDTIME 10/18/24 10/19/24 Unknown History vitamin E 268 mg (400 unit) capsule 268 mg PO DAILY 10/18/24 10/19/24 Unknown History tacrolimus 1 mg capsule, 4 mg PO Q12H 10/19/24 10/19/24 10/24/24 History immediate-release Exam Airway Mallampati Class: II TM Dist: >3cm Neck ROM: Full Heart: cta Lungs: rrr Assessment and Plan Assessment Anesthesia Assessment: Anesthesia Plan Discussed Final Anesthetic Review NPO: Yes ASA Class: III Final Preanesthetic Review: No Changes in Pt Med Stat, Meds/Allgs Chart Reviewed, Consent Obtained/Reviewed and Anes Risks/Benef Reviewed Patient Risk: Intermediate Procedure Risk: Low Anesthetic Plan Anesthetic Plan: MAC: Disposition: Standard PACU
[2024-11-07 06:59] VITALS: BMI 23.9
[2024-11-07 07:08] VITALS: BP 94/69; PULSE 91; RESP 18; TEMP 36.7; O2SAT 99
[2024-11-07] MEDS: Tetracaine HCl/PF 0.5% Oph Sol 4 ML DROPS 1 DROP EYE-RIGHT (07:10)
--- NOTE | 2024-11-07 07:10 | MHC.SHP ---
Pre-Procedural Eval Section A - 24 Hr Update-Section A only Date of Service: 11/07/24 The patient is an INPATIENT: No Changes since office visit: No Cold of Flu in the past 2 weeks, No New Medical Problems, No Changes in Medication and No Patient answered all questions The patient has been examined within 24 hours of the surgical procedure. The History & Physical has been completed within 30 days and I have reviewed it.: Yes Section B - Complete if H&P > 30 days Chief Complaint: Age-related nuclear cataract, right eye Allergies: Allergies Allergy/AdvReac Type Severity Reaction Status Date / Time NILS Inhibitors Allergy Cough Verified 02/15/24 15:10 Plan Diagnosis/Plan: Unchanged I have reviewed the history and physical and performed a pertinent physical examination on my patient. No changes have occurred unless specified. Time Spent With Patient Time: Total time managing care of this patient today ____ minutes.
[2024-11-07] MEDS: Cyclopentolate 1 % Ophth Sol 2 ML DRPBTL 1 DROP EYE-RIGHT ×3 (07:11→07:23)
[2024-11-07] MEDS: Tropicamide 1 % Ophth Sol 3 ML BTL 1 DROP EYE-RIGHT ×3 (07:15→07:27)
[2024-11-07] MEDS: Ketorolac Tromethamine 0.5% Op 5 ML DROPS 1 DROP EYE-RIGHT ×3 (07:16→07:28)
[2024-11-07] MEDS: Phenylephrine HCL 2.5% Oph SoL 2 ML BOTTLE 1 DROP EYE-RIGHT ×3 (07:18→07:30)
--- NOTE | 2024-11-07 08:19 | P.PCNO_ITS ---
Ophthalmology Procedure Procedure Date of Service: 11/07/24 Ophthalmology Viscoelastic: Healon Duet Dual Pack Pro Ophthalmology Lenses: IOL Acrysof MP - MA60AC (20.5) Procedure Notes: PREOPERATIVE DIAGNOSIS: Decreased visual acuity right eye secondary to cataract POSTOPERATIVE DIAGNOSIS: Same PROCEDURE: Right cataract extraction with intraocular lens insertion SURGEON: Luis Manuel Emanuel M.D. ANESTHESIA: Topical/MAC ESTIMATED BLOOD LOSS: None COMPLICATIONS: None After obtaining informed consent, the patient was brought to the operating room suite and placed in the supine position. After adequate sedation per anesthesia, topical drops of Tetracaine were given to the right eye. The eye was then prepped and draped in the usual sterile fashion. The operating room microscope was then positioned over the operative eye and a lid speculum placed. A paracentesis was created. Viscoelastic was then instilled into the anterior chamber. A three plane incision was then created temporally, utilizing a 2.85 mm keratome. Capsulotomy forceps were then utilized to create a circular tear capsulotomy. Hydrodissection and hydrodelineation were carried out until adequate mobilization of the nucleus occurred. Phacoemulsification was then utilized to remove the dense central nu cleus followed by removal of the cortical material utilizing the automated aspiration irrigation unit. Viscoelastic was instilled into the posterior capsular bag followed by placement of a posterior chamber intraocular lens without difficulty. The residual Viscoelastic was then removed utilizing the automated IA machine. The wound was checked and found to be watertight. The patient tolerated the procedure well and the lid speculum was removed. Intracameral injection of Vigamox 0.1 mL followed by a subtenon injection of Kenalog-40 0.2 mL were administered. The patient will be seen in the a.m.
[2024-11-07 08:45] VITALS: BP 114/71; PULSE 80; RESP 16; TEMP 36.4; O2SAT 100
[2024-11-07 09:05] VITALS: BP 112/75; PULSE 82; RESP 18; TEMP 36.4; O2SAT 100
== END 2024-11-07 09:00 | disposition home or self-care (01) ==
PROVIDERS: PCP Internal Medicine; Visit Provider Ophthalmology
PROC: (CPT 66985; principal; 2024-11-07 08:30)
DX: H25.11 Age-related nuclear cataract, right eye (principal); H52.4 Presbyopia; H35.09 Other intraretinal microvascular abnormalities; Z94.1 Heart transplant status; I42.9 Cardiomyopathy, unspecified; I10 Essential (primary) hypertension; I95.9 Hypotension, unspecified; E78.00 Pure hypercholesterolemia, unspecified; E03.9 Hypothyroidism, unspecified; B35.1 Tinea unguium; F32.4 Major depressive disorder, single episode, in partial remission; Z96.1 Presence of intraocular lens; Z79.82 Long term (current) use of aspirin; Z79.899 Other long term (current) drug therapy
CPT/HCPCS: 66984; J2250; J3301; V2630

== ENCOUNTER 2024-11-09 16:35 | Outpatient (REF) | payer OTHER, SELFPAY ==
--- OUTSIDE RECORDS SUMMARY | 2024-11-09 16:39 | XMS_ITS | Clinical Summary ---
Author Organization [facility] Address [address] [place] [address] Care Team Providers Care Training And Development Manager Name Role Phone Al Sy MD Primary Care Provider [phone] Social History Tobacco Use Types Packs/Day Years [...] 2024 Influenza Vaccine 12/09/2024 Insurance [facility] Care Teams Training And Development Manager Relationship Specialty Start Date End Date Al Sy MD [address] [place] [address] PCP - General Internal Medicine 08/15/23
--- OUTSIDE RECORDS SUMMARY | 2024-11-09 16:39 | XMS_ITS ---
Author Name [facility] Organization Unknown Encounters Encounter Type Encounter Reason Primary Diagnosis Location Date Ambulatory Heart Failure Heart Failure [facility] 08/15/2023 Care Team Organization Name Specialty Phone Email Start Date End Da te Moya Okruga 08/16/2023 [employer] GUERO RANDLE Primary Care 08/16/2023 [employer] [facility] Primary Care 08/16/2023 07/27/2024 [employer] 08/16/2023
[2024-11-10 16:44] LABS: CMV DNA Qn PCR NOT DETECTED Log IU/mL (NOT DETECTED)
== END 2024-11-09 16:36 | disposition home or self-care (01) ==
LOC: HO.LAB 16:35
PROVIDERS: PCP Internal Medicine; Visit Provider Nurse Practitioner
DX: Z94.1 Heart transplant status (principal)
CPT/HCPCS: 36415; 87497

== ENCOUNTER 2024-11-28 14:17 | Outpatient (REF) | payer OTHER, SELFPAY ==
--- OUTSIDE RECORDS SUMMARY | 2024-11-28 15:08 | XMS_ITS | Encounter Summary ---
Author Organization [facility] Address [address] [place] [address] Phone Care Team Providers Care Beehive Kiln Supervisor Name Role Phone Al Sy MD Primary Care Provider [phone] Encounter Details Date Type Department Care Team (Late st Contact Info) Description 10/22/2023 Prep for Surgery [facility] Cardiac Transplant [address] [place] [address] Kadie King, JUAN DANIEL [address] [place] [address] [email or web address] Social History Tobacco Use Types Packs/Day Years Used Date Smoking Tobacco: Never Smokeless Tobacco: Never Education Answer Date Recorded Are you interested in more education? Not on pierce e 08/16/2023 Are you concerned about learning? Not on file 08/16/2023 No 08/16/2023 No 08/16/2023 Food Answer Date Recorded Within the past 6 months we worried whether our food would run out before we got money to buy more. Never True 10/06/2023 Within the past 6 months the food we bought just didn't last and we didn't have enough money to get more. Never True Residential Stability Answer Date Recor ded What is your housing situation today? I have allan medina 10/06/2023 How many times have you move d in the past 12 months? Zero (I did not move) 10/06/2023 Paying for Meds Answer Date Recorded Do you have trouble paying for medicines? No 10/06/2023 Paying Utility Bills Answer Date Record ed Do you have trouble paying your heating or elect ricity bill? No 10/06/2023 Transportation Answer Date Recorded Has the lack of transportati on kept you from medical appointments or from getting medications? No 10/06/2023 Digital Access Answer Date Recorded No 10/06/2023 Yes 10/06/2023 Do you have reliable internet access at home? Ye s 10/06/2023 Do you have a device (e.g., phone, tablet, computer) with a working camera? Yes 10/06/2023 Intimate Partner Violence Answer Date R ecorded Are you denied basic needs s uch as food, clothing, or medical care? No 08/16/2023 In the past 12 months have y ou been in a relationship with a person who hurts, threatens, or tries to control you? No 08/16/2023 Are you denied basic needs s uch as food, clothing, or medical care? No 08/16/2023 In the past 12 months have y ou been in a relationship with a person who hurts, threatens, or tries to control you? No 08/16/2023 Sex and Gender Information Value Date Recorded Sex Assigned at Not on file Legal Sex Male 5:14 PM EST Gender Identity Not on file Sexual Orientation Not on file documented as of this encounter Plan of Treatment Upcoming Encounters Date Type Department Care Team (Late st Contact Info) Description 12/22/2024 8:00 AM EDT Office Visit [facility] Cardiac Transplant [address] [place] [address] Unknown, Unknown, documented as of this encounter Visit Diagnoses Not on filedocumented in this encounter Additional Health Concerns Infection Onset Date Last Indicated Resolved Time CDiff-Risk 03/31/2024 03/31/2024 04/01/2024 7:03 AM EST documented as of this encounter Care Teams Beehive Kiln Supervisor Relationship Specialty Start Date End Date Al Sy MD [address] [place] [id number] PCP - General Internal Medicine 08/17/23 documented as of this encounter Additional Source Comments The information contained in this document represents components of the legal health record. It is not the complete legal health record.[facility]
--- OUTSIDE RECORDS SUMMARY | 2024-11-28 15:08 | XMS_ITS | Clinical Summary ---
Author Organization [facility] Address [address] [place] [address] Care Team Providers Care Weaver Apprentice Name Role Phone Al Sy MD Primary Care Provider [phone] Social History Tobacco Use Types Packs/Day Years [...] 2024 Influenza Vaccine 12/09/2024 Insurance [facility] Care Teams Weaver Apprentice Relationship Specialty Start Date End Date Al Sy MD [address] [place] [address] PCP - General Internal Medicine 08/15/23
[2024-11-29 16:08] LABS: CMV DNA Qn PCR NOT DETECTED Log IU/mL (NOT DETECTED)
== END 2024-11-28 14:18 | disposition home or self-care (01) ==
LOC: HO.LABR 14:17
PROVIDERS: PCP Internal Medicine; Visit Provider Nurse Practitioner
DX: Z94.1 Heart transplant status (principal)
CPT/HCPCS: 36415; 87497

== ENCOUNTER 2024-12-15 16:03 | Outpatient (REF) | payer OTHER, SELFPAY ==
--- OUTSIDE RECORDS SUMMARY | 2024-12-15 16:08 | XMS_ITS | Encounter Summary ---
Author Organization [facility] Address [address] [place] [address] Phone Care Team Providers Care Marketing Summer Intern Name Role Phone Al Sy MD Primary Care Provider [phone] Encounter Details Date Type Department Care Team (Late st Contact Info) Description 10/22/2023 Prep for Surgery [facility] Cardiac Transplant [address] [place] [address] Kadie King, JUAN DANIEL [address] [place] [address] [email or web address] Social History Tobacco Use Types Packs/Day Years [...] Description 12/22/2024 8:00 AM EDT Office Visit [facility] Cardiac Transplant [address] [place] [address] Unknown, Unknown, documented as of this encounter Visit Diagnoses Not on filedocumented in this encounter Additional Health Concerns Infection Onset Date Last Indicated Resolved Time CDiff-Risk 03/31/2024 03/31/2024 04/01/2024 7:03 AM EST documented as of this encounter Care Teams Marketing Summer Intern Relationship Specialty Start Date End Date Al Sy MD [address] [place] [id number] PCP - General Internal Medicine 08/17/23 documented as of this encounter Additional Source Comments The information contained in this document represents components of the legal health record. It is not the complete legal health record.[facility]
--- OUTSIDE RECORDS SUMMARY | 2024-12-15 16:09 | XMS_ITS | Clinical Summary ---
Author Organization [facility] Address [address] [place] [address] Care Team Providers Care Telephone Solicitor Name Role Phone Al Sy MD Primary Care Provider [phone] Social History Tobacco Use Types Packs/Day Years [...] - season) 2024 Influenza Vaccine 12/09/2024 Insurance [facility] Care Teams Telephone Solicitor Relationship Specialty Start Date End Date Al Sy MD [address] [place] [address] PCP - General Internal Medicine 08/15/23
[2024-12-16 16:42] LABS: CMV DNA Qn PCR NOT DETECTED Log IU/mL (NOT DETECTED)
== END 2024-12-15 16:04 | disposition home or self-care (01) ==
LOC: HO.LABR 16:03
PROVIDERS: PCP Internal Medicine; Visit Provider Nurse Practitioner
DX: Z94.1 Heart transplant status (principal)
CPT/HCPCS: 36415; 87497

== ENCOUNTER 2025-01-06 11:41 | Outpatient (REF) | payer OTHER, SELFPAY ==
--- OUTSIDE RECORDS SUMMARY | 2025-01-06 12:41 | XMS_ITS | Encounter Summary ---
Author Organization [facility] Address [address] [facility] ([place], [place]) [address] [place] [address] Phone Care Team Providers Care Waste Baler Name Role Phone Al Sy MD Primary Care Provider [phone] Encounter Details Date Type Department Care Team (Late st Contact Info) Description 05/12/[address] [facility] Cardiac Mixer Operator [employer] [address] [place] [address] Social History Tobacco Use Types Packs/Day Years [...] your housing situation today? I have allan sing 10/06/2023 How many times have you move [...] Care Team (Late st Contact Info) Description 03/30/2025 8:30 AM EST Office [address] [facility] Cardiac Transplant [address] [place] [address] Unknown, Unknown, documented as of this encounter Visit Diagnoses Not on filedocumented in this encounter Additional Health Concerns Infection Onset Date Last Indicated Resolved Time CDiff-Risk 12/20/2024 12/21/2024 12/21/2024 5:39 PM EDT documented as of this encounter Care Teams Waste Baler Relationship Specialty Start Date End Date Al Sy MD [address] [place] [address] PCP - General Internal Medicine 08/17/23 documented as of this encounter Additional Source Comments The information contained in this document represents components of the legal health record. It is not the complete legal health record.[facility]
--- OUTSIDE RECORDS SUMMARY | 2025-01-06 12:41 | XMS_ITS | Encounter Summary ---
Author Organization [facility] Address [address] [facility] [address] [place] [address] Phone Care Team Providers Care Independent Driver Name Role Phone Al Sy MD Primary Care Provider [phone] Encounter Details Date Type Department Care Team (Late st Contact Info) Description 10/22/2023 Prep for Surgery [facility] Cardiac Transplant [address] [place] [address] Kadie King CNP [address] [place] [address] [email or web address] Social History Tobacco Use Types Packs/Day Years [...] Description 03/30/2025 8:30 AM EST Office Visit [facility] Cardiac Transplant [address] [place] [address] Unknown, Unknown, documented as of this encounter Visit Diagnoses Not on filedocumented in this encounter Additional Health Concerns Infection Onset Date Last Indicated Resolved Time CDiff-Risk 03/31/2024 03/31/2024 04/01/2024 7:03 AM EST CDiff-Risk 12/20/2024 12/21/2024 12/21/2024 5:39 PM EDT documented as of this encounter Care Teams Independent Driver Relationship Specialty Start Date End Date Al Sy MD [address] [place] [id number] PCP - General Internal Medicine 08/17/23 documented as of this encounter Additional Source Comments The information contained in this document represents components of the legal health record. It is not the complete legal health record.[facility]
--- OUTSIDE RECORDS SUMMARY | 2025-01-06 12:41 | XMS_ITS | Encounter Summary ---
Author Organization [facility] Address [address] [facility] [address] [place] [address] Phone Care Team Providers Care Account Technician Name Role Phone Al Sy MD Primary Care Provider [phone] Encounter Details Date Type Department Care Team (Late st Contact Info) Description 03/31/2024 Prep for Surgery [facility] Cardiac Transplant [address] [place] [address] Gretchen Wheat, SANDRA [address] [place] [address] [email or web address] Social History Tobacco Use Types Packs/Day [...] Description 03/30/2025 8:30 AM EST Office Visit [facility] Cardiac Transplant [address] [place] [address] Unknown, Unknown, documented as of this encounter Visit Diagnoses Not on filedocumented in this encounter Additional Health Concerns Infection Onset Date Last Indicated Resolved Time CDiff-Risk 03/31/2024 03/31/202404/01/2024 7:03 AM EST CDiff-Risk 12/20/2024 12/21/2024 12/21/2024 5:39 PM EDT documented as of this encounter Care Teams Account Technician Relationship Specialty Start Date End Date Al Sy MD [address] [place] [id number] PCP - General Internal Medicine 08/17/23 documented as of this encounter Additional Source Comments The information contained in this document represents components of the legal health record. It is not the complete legal health record.[facility]
--- OUTSIDE RECORDS SUMMARY | 2025-01-06 12:42 | XMS_ITS | Encounter Summary ---
Author Organization [facility] Address [email or web address] [facility] [address] [place] [address] Phone Care Team Providers Care Plant Utility Person Name Role Phone Al Sy MD Primary Care Provider [phone] Encounter Details Date Type Department Care Team (Late st Contact Info) Description 07/07/2024 Procedure Pass [facility] Cardiac Edge Cutting Machine Operator [address] [place] [address] Social History Tobacco Use Types Packs/Day Years [...] Description 03/30/2025 8:30 AM EST Office Visit [facility] Cardiac Transplant [address] [place] [address] Unknown, Unknown, documented as of this encounter Visit Diagnoses Not on filedocumented in this encounter Additional Health Concerns Infection Onset Date Last Indicated Resolved Time CDiff-Risk 12/20/2024 12/21/2024 12/21/2024 5:39 PM EDT documented as of this encounter Care Teams Plant Utility Person Relationship Specialty Start Date End Date Al Sy MD [address] [place] [address] PCP - General Internal Medicine 08/17/23 documented as of this encounter Additional Source Comments The information contained in this document represents components of the legal health record. It is not the complete legal health record.[facility]
--- OUTSIDE RECORDS SUMMARY | 2025-01-06 12:42 | XMS_ITS | Encounter Summary ---
Author Organization [facility] Address [address] [facility] [address] [place] [address] Phone Care Team Providers Care Otologist Name Role Phone Al Sy MD Primary Care Provider [phone] Encounter Details Date Type Department Care Team (Late st Contact Info) Description 12/02/2024 Ancillary Orders [facility] Cardiac Transplant [address] [place] [address] Elsa Cox, RN [address] [place] [address] [email or web address] Heart replaced by transplant Social History Tobacco Use Types Packs/Day Years [...] Description 03/30/2025 8:30 AM EST Office Visit [facility] Cardiac Transplant [address] [place] [address] Unknown, Hailee, documented as of this encounter Visit Diagnoses Diagnosis Heart replaced by transplant documented in this encounter Additional Health Concerns Infection Onset Date Last Indicated Resolved Time CDiff-Risk 12/20/2024 12/21/2024 12/21/2024 5:39 PM EDT documented as of this encounter Care Teams Otologist Relationship Specialty Start Date End Date Al Sy MD [address] [place] [id number] PCP - General Internal Medicine 08/17/23 documented as of this encounter Additional Source Comments The information contained in this document represents components of the legal health record. It is not the complete legal health record.[facility]
--- OUTSIDE RECORDS SUMMARY | 2025-01-06 12:42 | XMS_ITS | Encounter Summary ---
Author Organization [facility] Address [address] [facility] [address] [place] [address] Phone Care Team Providers Care Bow Tacker Name Role Phone Al Sy MD Primary Care Provider [phone] Encounter Details Date Type Department Care Team (Late st Contact Info) Description 10/30/2023 Prep for Surgery [facility] Cardiac Transplant [address] [place] [address] Gretchen Wheat, SANDRA [address] [place] [address] [email or web address] Social History Tobacco Use Types Packs/Day [...] Description 03/30/2025 8:30 AM EST Office Visit [facility] Cardiac Transplant [address] [place] [address] Unknown, Unknown, documented as of this encounter Visit Diagnoses Not on filedocumented in this encounter Additional Health Concerns Infection Onset Date Last Indicated Resolved Time CDiff-Risk 03/31/2024 03/31/202404/01/2024 7:03 AM EST CDiff-Risk 12/20/2024 12/21/2024 12/21/2024 5:39 PM EDT documented as of this encounter Care Teams Bow Tacker Relationship Specialty Start Date End Date Al Sy MD [address] [place] [address] PCP - General Internal Medicine 08/17/23 documented as of this encounter Additional Source Comments The information contained in this document represents components of the legal health record. It is not the complete legal health record.[facility]
--- OUTSIDE RECORDS SUMMARY | 2025-01-06 12:42 | XMS_ITS | Encounter Summary ---
Author Organization [facility] Address [address] [employer] [facility] [address] [place] [address] Phone Care Team Providers Care Hospitality Aide Name Role Phone Al Sy MD Primary Care Provider [phone] Encounter Details Date Type Department Care Team (Late st Contact Info) Description 11/02/2023 Procedure Pass [facility] Cardiac Bilingual Recruiter [address] [place] [address] Social History Tobacco Use Types Packs/Day Years [...] Description 03/30/2025 8:30 AM EST Office Visit [facility] Cardiac Transplant [address] [place] [address] Unknown, UnknownMD documented as of this encounter Visit Diagnoses Not on filedocumented in this encounter Additional Health Concerns Infection Onset Date Last Indicated Resolved Time CDiff-Risk 03/31/2024 03/31/2024 04/01/2024 7:03 AM EST CDiff-Risk 12/20/2024 12/21/2024 12/21/2024 5:39 PM EDT documented as of this encounter Care Teams Hospitality Aide Relationship Specialty Start Date End Date Al Sy MD [address] [place] [address] PCP - General Internal Medicine 08/17/23 documented as of this encounter Additional Source Comments The information contained in this document represents components of the legal health record. It is not the complete legal health record.[facility]
--- OUTSIDE RECORDS SUMMARY | 2025-01-06 12:42 | XMS_ITS | Encounter Summary ---
Author Organization [facility] Address [address] [employer] [facility] [address] [place] [address] Phone Care Team Providers Care Vigoureux Printer Name Role Phone Al Sy MD Primary Care Provider [phone] Encounter Details Date Type Department Care Team (Late st Contact Info) Description 10/26/2023 Procedure Pass [facility] Cardiac It Infrastructure Manager [address] [place] [address] Social History Tobacco Use Types Packs/Day Years [...] Description 03/30/2025 8:30 AM EST Office Visit [facility] Cardiac Transplant [address] [place] [address] Unknown, UnknownMD documented as of this encounter Visit Diagnoses Not on filedocumented in this encounter Additional Health Concerns Infection Onset Date Last Indicated Resolved Time CDiff-Risk 03/31/2024 03/31/2024 04/01/2024 7:03 AM EST CDiff-Risk 12/20/2024 12/21/2024 12/21/2024 5:39 PM EDT documented as of this encounter Care Teams Vigoureux Printer Relationship Specialty Start Date End Date Al Sy MD [address] [place] [address] PCP - General Internal Medicine 08/17/23 documented as of this encounter Additional Source Comments The information contained in this document represents components of the legal health record. It is not the complete legal health record.[facility]
--- OUTSIDE RECORDS SUMMARY | 2025-01-06 12:43 | XMS_ITS | Encounter Summary ---
Author Organization [facility] Address [address] [employer] [facility] [address] [place] [address] Phone Care Team Providers Care Landing Gear Mechanic Name Role Phone Al Sy MD Primary Care Provider [phone] Encounter Details Date Type Department Care Team (Late st Contact Info) Description 07/08/2024 Procedure Pass [facility] Echocardiography [address] [place] [address] Social History Tobacco Use Types Packs/Day Years [...] Description 03/30/2025 8:30 AM EST Office Visit [facility] Cardiac Transplant [address] [place] [address] Unknown, Unknown, documented as of this encounter Visit Diagnoses Not on filedocumented in this encounter Additional Health Concerns Infection Onset Date Last Indicated Resolved Time CDiff-Risk 12/20/2024 12/21/2024 12/21/2024 5:39 PM EDT documented as of this encounter Care Teams Landing Gear Mechanic Relationship Specialty Start Date End Date Al Sy MD [address] [place] [address] PCP - General Internal Medicine 08/17/23 documented as of this encounter Additional Source Comments The information contained in this document represents components of the legal health record. It is not the complete legal health record.[facility]
--- OUTSIDE RECORDS SUMMARY | 2025-01-06 12:44 | XMS_ITS | Encounter Summary ---
Author Organization [facility] Address [address] [employer] [facility] [address] [place] [address] Phone Care Team Providers Care Adult Probation Officer Name Role Phone Al Sy MD Primary Care Provider [phone] Encounter Details Date Type Department Care Team (Late st Contact Info) Description 08/04/2024 Prep for Surgery [facility] Cardiac Transplant [address] [place] [address] Kadie King CNP [address] [place] [address] [email or web address] Social History Tobacco Use Types Packs/Day [...] Description 03/30/2025 8:30 AM EST Office Visit [facility] Cardiac Transplant [address] [place] [address] Unknown, Unknown, documented as of this encounter Visit Diagnoses Not on filedocumented in this encounter Additional Health Concerns Infection Onset Date Last Indicated Resolved Time CDiff-Risk 12/20/2024 12/21/2024 12/21/2024 5:39 PM EDT documented as of this encounter Care Teams Adult Probation Officer Relationship Specialty Start Date End Date Al Sy MD [address] [place] [address] PCP - General Internal Medicine 08/17/23 documented as of this encounter Additional Source Comments The information contained in this document represents components of the legal health record. It is not the complete legal health record.[facility]
--- OUTSIDE RECORDS SUMMARY | 2025-01-06 12:44 | XMS_ITS | Encounter Summary ---
Author Organization [facility] Address [address] [employer] [facility] [address] [place] [address] Phone Care Team Providers Care Glass Cut Off Supervisor Name Role Phone Al Sy MD Primary Care Provider [phone] Encounter Details Date Type Department Care Team (Late st Contact Info) Description 11/23/2023 Procedure Pass [facility] Echocardiography [address] [place] [address] Social History Tobacco Use Types Packs/Day Years [...] Description 03/30/2025 8:30 AM EST Office Visit [facility] Cardiac Transplant [address] [place] [address] Unknown, Unknown, documented as of this encounter Visit Diagnoses Not on filedocumented in this encounter Additional Health Concerns Infection Onset Date Last Indicated Resolved Time CDiff-Risk 03/31/2024 03/31/2024 04/01/2024 7:03 AM EST CDiff-Risk 12/20/2024 12/21/2024 12/21/2024 5:39 PM EDT documented as of this encounter Care Teams Glass Cut Off Supervisor Relationship Specialty Start Date End Date Al Sy MD [address] [place] [address] PCP - General Internal Medicine 08/17/23 documented as of this encounter Additional Source Comments The information contained in this document represents components of the legal health record. It is not the complete legal health record.[facility]
--- OUTSIDE RECORDS SUMMARY | 2025-01-06 12:44 | XMS_ITS | Encounter Summary ---
Author Organization [facility] Address [address] [employer] [facility] [address] [place] [address] Phone Care Team Providers Care Scaling Machine Operator Name Role Phone Al Sy MD Primary Care Provider [phone] Encounter Details Date Type Department Care Team (Late st Contact Info) Description 11/16/2023 Procedure Pass [facility] Cardiac Tugboat Mate [address] [place] [address] Social History Tobacco Use Types Packs/Day Years [...] Description 03/30/2025 8:30 AM EST Office Visit [facility] Cardiac Transplant [address] [place] [address] Unknown, UnknownMD documented as of this encounter Visit Diagnoses Not on filedocumented in this encounter Additional Health Concerns Infection Onset Date Last Indicated Resolved Time CDiff-Risk 03/31/2024 03/31/2024 04/01/2024 7:03 AM EST CDiff-Risk 12/20/2024 12/21/2024 12/21/2024 5:39 PM EDT documented as of this encounter Care Teams Scaling Machine Operator Relationship Specialty Start Date End Date Al Sy MD [address] [place] [address] PCP - General Internal Medicine 08/17/23 documented as of this encounter Additional Source Comments The information contained in this document represents components of the legal health record. It is not the complete legal health record.[facility]
--- OUTSIDE RECORDS SUMMARY | 2025-01-06 12:44 | XMS_ITS | Encounter Summary ---
Author Organization [facility] Address [address] [employer] [facility] [address] [place] [address] Phone Care Team Providers Care Check Out Cashier Name Role Phone Al Sy MD Primary Care Provider [phone] Encounter Details Date Type Department Care Team (Late st Contact Info) Description 11/16/2023 Transcribe Orders [facility] EKG [address] [place] [address] Al Sy MD [address] [place] [address] [place] [address] Social History Tobacco Use Types Packs/Day Years [...] Description 03/30/2025 8:30 AM EST Office Visit [facility] Cardiac Transplant [address] [place] [address] Unknown, Unknown, documented as of this encounter Procedures Procedure Name Priority Date/Time Associated Diagnosis Comments ECG 12-LEAD Routine 11/16/2023 8:56 AM EDT documented in this encounter Results * ECG 12-LEAD (11/16/2023 8:56 AM EDT) Ventricular Rate EKG/MIN 98 BPM [facility] Atrial Rate 98 BPM [facility] ME Interval 138 ms [facility] QRS Duration 82 ms [facility] QT Interval 352 ms [facility] QTC Interval 449 ms [facility] P [place] 31 degrees [facility] R Wave [place] 23 degrees [facility] T Wave [place] 15 degrees [facility] 11/16/2023 8:56 AM EDT Narrative [facility] - 11/20/2023 8:40 AM EDT Normal sinus rhythm Low voltage QRS, consider pulmonary disease, pericardial effusion, or normal variant Nonspecific T wave abnormality Abnormal ECG When compared with ECG of 02-Nov-2023 08:59, Nonspecific T wave abnormality now evident in Anterior leads us Kadie King FROG FARMER ECG ORDERABLES Final Result [facility] documented in this encounter Visit Diagnoses Not on filedocumented in this encounter Additional Health Concerns Infection Onset Date Last Indicated Resolved Time CDiff-Risk 03/31/2024 03/31/2024 04/01/2024 7:03 AM EST CDiff-Risk 12/20/2024 12/21/2024 12/21/2024 5:39 PM EDT documented as of this encounter Care Teams Check Out Cashier Relationship Specialty Start Date End Date Al Sy MD [address] [place] [address] PCP - General Internal Medicine 08/17/23 documented as of this encounter Additional Source Comments The information contained in this document represents components of the legal health record. It is not the complete legal health record.[facility]
--- OUTSIDE RECORDS SUMMARY | 2025-01-06 12:44 | XMS_ITS | Encounter Summary ---
Author Organization [facility] Address [address] [employer] [facility] [address] [place] [address] Phone Care Team Providers Care Scrap Metal Collector Name Role Phone Al Sy MD Primary Care Provider [phone] Encounter Details Date Type Department Care Team (Late st Contact Info) Description 08/08/2024 Procedure Pass [facility] Cardiac Manager Garage [address] [place] [address] Social History Tobacco Use Types Packs/Day Years [...] Description 03/30/2025 8:30 AM EST Office Visit [facility] Cardiac Transplant [address] [place] [address] Unknown, Unknown, documented as of this encounter Visit Diagnoses Not on filedocumented in this encounter Additional Health Concerns Infection Onset Date Last Indicated Resolved Time CDiff-Risk 12/20/2024 12/21/2024 12/21/2024 5:39 PM EDT documented as of this encounter Care Teams Scrap Metal Collector Relationship Specialty Start Date End Date Al Sy MD [address] [place] [address] PCP - General Internal Medicine 08/17/23 documented as of this encounter Additional Source Comments The information contained in this document represents components of the legal health record. It is not the complete legal health record.[facility]
--- OUTSIDE RECORDS SUMMARY | 2025-01-06 12:44 | XMS_ITS | Encounter Summary ---
Author Organization [facility] Address [address] [employer] [facility] [address] [place] [address] Phone Care Team Providers Care Antitank Assault Gunner Name Role Phone Al Sy MD Primary Care Provider [phone] Encounter Details Date Type Department Care Team (Late st Contact Info) Description 09/04/2023 Procedure Pass [facility] Cardiac Fermenting Cellar Dropper [address] [place] [address] Social History Tobacco Use Types Packs/Day Years Used Date Smoking Tobacco: Never Smokeless Tobacco: Never Education Answer Date Recorded Are you interested in more education? Not on pierce e 08/16/2023 Are you concerned about learning? Not on file 08/16/2023 No 08/16/2023 No 08/16/2023 Digital Access Answer Date Recorded No 08/16/2023 No 08/16/2023 Reliable internet access at home? Not on file 08/16/2023 Device with a working camera? Not on file Intimate Partner Violence Answer Date R ecorded [...] Description 03/30/2025 8:30 AM EST Office Visit [facility] Cardiac Transplant [address] [place] [address] Unknown, Unknown, documented as of this encounter Visit Diagnoses Not on filedocumented in this encounter Additional Health Concerns Infection Onset Date Last Indicated Resolved Time CDiff-Risk 03/31/2024 03/31/2024 04/01/2024 7:03 AM EST CDiff-Risk 12/20/2024 12/21/2024 12/21/2024 5:39 PM EDT documented as of this encounter Care Teams Antitank Assault Gunner Relationship Specialty Start Date End Date Al Sy MD [address] [place] [address] PCP - General Internal Medicine 08/17/23 documented as of this encounter Additional Source Comments The information contained in this document represents components of the legal health record. It is not the complete legal health record.[facility]
--- OUTSIDE RECORDS SUMMARY | 2025-01-06 12:44 | XMS_ITS | Encounter Summary ---
Author Organization [facility] Address [address] [facility] [address] [place] [address] Phone Care Team Providers Care Sheet Combining Operator Name Role Phone Al Sy MD Primary Care Provider [phone] Encounter Details Date Type Department Care Team (Late st Contact Info) Description 11/18/2023 Procedure Pass [facility] [address] [place] [address] Social History Tobacco Use Types Packs/Day Years [...] 03/30/2025 8:30 AM EST Office Visit [facility] Cardiac Transplant [address] [place] [address] Unknown, UnknownMD documented as of this encounter Visit Diagnoses Not on filedocumented in this encounter Additional Health Concerns Infection Onset Date Last Indicated Resolved Time CDiff-Risk 03/31/2024 03/31/2024 04/01/2024 7:03 AM EST CDiff-Risk 12/20/2024 12/21/2024 12/21/2024 5:39 PM EDT documented as of this encounter Care Teams Sheet Combining Operator Relationship Specialty Start Date End Date Al Sy MD [address] [place] [address] PCP - General Internal Medicine 08/17/23 documented as of this encounter Additional Source Comments The information contained in this document represents components of the legal health record. It is not the complete legal health record.[facility]
--- OUTSIDE RECORDS SUMMARY | 2025-01-06 12:44 | XMS_ITS | Encounter Summary ---
Author Organization [facility] Address [address] [place] [address] Phone Care Team Providers Care Customs Broker Name Role Phone Al Sy MD Primary Care Provider [phone] Encounter Details Date Type Department Care Team (Late st Contact Info) Description 08/19/2023 Procedure Pass [facility] [address] [place] [address] Social History Tobacco Use Types Packs/Day Years Used Date Smoking Tobacco: Never Assessed Education Answer Date Recorded Are you interested [...] Description 03/30/2025 8:30 AM EST Office Visit [facility] Cardiac Transplant [address] [place] [address] Unknown, UnknownMD documented as of this encounter Visit Diagnoses Not on filedocumented in this encounter Additional Health Concerns Infection Onset Date Last Indicated Resolved Time CDiff-Risk 03/31/2024 03/31/2024 04/01/2024 7:03 AM EST CDiff-Risk 12/20/2024 12/21/2024 12/21/2024 5:39 PM EDT documented as of this encounter Care Teams Customs Broker Relationship Specialty Start Date End Date Al Sy MD [address] [place] [address] PCP - General Internal Medicine 08/17/23 documented as of this encounter Additional Source Comments The information contained in this document represents components of the legal health record. It is not the complete legal health record.[facility]
--- OUTSIDE RECORDS SUMMARY | 2025-01-06 12:44 | XMS_ITS | Encounter Summary ---
Author Organization [facility] Address [address] [place] [address] Phone Care Team Providers Care Ribbon Blocker Name Role Phone Al Sy MD Primary Care Provider [phone] Encounter Details Date Type Department Care Team (Late st Contact Info) Description 08/20/2023 Procedure Pass [facility] [address] [place] [address] Social History Tobacco Use Types Packs/Day Years [...] Description 03/30/2025 8:30 AM EST Office Visit [facility] Cardiac Transplant [address] [place] [address] Unknown, UnknownMD documented as of this encounter Visit Diagnoses Not on filedocumented in this encounter Additional Health Concerns Infection Onset Date Last Indicated Resolved Time CDiff-Risk 03/31/2024 03/31/2024 04/01/2024 7:03 AM EST CDiff-Risk 12/20/2024 12/21/2024 12/21/2024 5:39 PM EDT documented as of this encounter Care Teams Ribbon Blocker Relationship Specialty Start Date End Date Al Sy MD [address] [place] [address] PCP - General Internal Medicine 08/17/23 documented as of this encounter Additional Source Comments The information contained in this document represents components of the legal health record. It is not the complete legal health record.[facility]
--- OUTSIDE RECORDS SUMMARY | 2025-01-06 12:44 | XMS_ITS | Encounter Summary ---
Author Organization [facility] Address [address] [place] [address] Phone Care Team Providers Care Postbed Stitcher Name Role Phone Al Sy MD Primary Care Provider [phone] Encounter Details Date Type Department Care Team (Late st Contact Info) Description 08/20/2023 Procedure Pass [facility] [address] [place] [address] Social History Tobacco Use Types Packs/Day Years [...] Description 03/30/2025 8:30 AM EST Office Visit [facility] Cardiac Transplant [address] [place] [address] Unknown, UnknownMD documented as of this encounter Visit Diagnoses Not on filedocumented in this encounter Additional Health Concerns Infection Onset Date Last Indicated Resolved Time CDiff-Risk 03/31/2024 03/31/2024 04/01/2024 7:03 AM EST CDiff-Risk 12/20/2024 12/21/2024 12/21/2024 5:39 PM EDT documented as of this encounter Care Teams Postbed Stitcher Relationship Specialty Start Date End Date Al Sy MD [address] [place] [address] PCP - General Internal Medicine 08/17/23 documented as of this encounter Additional Source Comments The information contained in this document represents components of the legal health record. It is not the complete legal health record.[facility]
--- OUTSIDE RECORDS SUMMARY | 2025-01-06 12:44 | XMS_ITS | Encounter Summary ---
Author Organization [facility] Address [address] [employer] [facility] [address] [place] [address] Phone Care Team Providers Care Desizing Machine Operator Name Role Phone Al Sy MD Primary Care Provider [phone] Encounter Details Date Type Department Care Team (Late st Contact Info) Description 08/27/2023 Procedure Pass [facility] Echocardiography [address] [place] [address] Social History Tobacco Use Types Packs/Day Years [...] Description 03/30/2025 8:30 AM EST Office Visit [facility] Cardiac Transplant [address] [place] [address] Unknown, Unknown, documented as of this encounter Visit Diagnoses Not on filedocumented in this encounter Additional Health Concerns Infection Onset Date Last Indicated Resolved Time CDiff-Risk 03/31/2024 03/31/2024 04/01/2024 7:03 AM EST CDiff-Risk 12/20/2024 12/21/2024 12/21/2024 5:39 PM EDT documented as of this encounter Care Teams Desizing Machine Operator Relationship Specialty Start Date End Date Al Sy MD [address] [place] [address] PCP - General Internal Medicine 08/17/23 documented as of this encounter Additional Source Comments The information contained in this document represents components of the legal health record. It is not the complete legal health record.[facility]
--- OUTSIDE RECORDS SUMMARY | 2025-01-06 12:44 | XMS_ITS | Encounter Summary ---
Author Organization [facility] Address [address] [facility] [address] [place] [address] Phone Care Team Providers Care Refuse Laborer Name Role Phone Al Sy MD Primary Care Provider [phone] Encounter Details Date Type Department Care Team (Late st Contact Info) Description 11/18/2024 Ancillary Orders [facility] Cardiac Transplant [address] [place] [address] Elsa Cox, RN [address] [place] [address] [email or web address] Heart replaced by transplant Social History Tobacco [...] Description 03/30/2025 8:30 AM EST Office Visit [facility] Cardiac Transplant [address] [place] [address] Unknown, Hailee, documented as of this encounter Visit Diagnoses Diagnosis Heart replaced by transplant documented in this encounter Additional Health Concerns Infection Onset Date Last Indicated Resolved Time CDiff-Risk 12/20/2024 12/21/2024 12/21/2024 5:39 PM EDT documented as of this encounter Care Teams Refuse Laborer Relationship Specialty Start Date End Date Al Sy MD [address] [place] [address] PCP - General Internal Medicine 08/17/23 documented as of this encounter Additional Source Comments The information contained in this document represents components of the legal health record. It is not the complete legal health record.[facility]
--- OUTSIDE RECORDS SUMMARY | 2025-01-06 12:44 | XMS_ITS | Encounter Summary ---
Author Organization [facility] Address [address] [employer] [facility] [address] [place] [address] Phone Care Team Providers Care Internet Marketing Specialist Name Role Phone Al Sy MD Primary Care Provider [phone] Encounter Details Date Type Department Care Team (Late st Contact Info) Description 12/31/2023 Procedure Pass [facility] Cardiac Cabin Worker [address] [place] [address] Social History Tobacco Use Types Packs/Day Years [...] 03/30/2025 8:30 AM EST Office Visit [facility] Cardiac Transplant [address] [place] [address] Unknown, UnknownMD documented as of this encounter Visit Diagnoses Not on filedocumented in this encounter Additional Health Concerns Infection Onset Date Last Indicated Resolved Time CDiff-Risk 03/31/2024 03/31/2024 04/01/2024 7:03 AM EST CDiff-Risk 12/20/2024 12/21/2024 12/21/2024 5:39 PM EDT documented as of this encounter Care Teams Internet Marketing Specialist Relationship Specialty Start Date End Date Al Sy MD [address] [place] [address] PCP - General Internal Medicine 08/17/23 documented as of this encounter Additional Source Comments The information contained in this document represents components of the legal health record. It is not the complete legal health record.[facility]
--- OUTSIDE RECORDS SUMMARY | 2025-01-06 12:44 | XMS_ITS | Encounter Summary ---
Author Organization [facility] Address [address] [facility] [address] [place] [address] Phone Care Team Providers Care Stack Attendant Name Role Phone Al Sy MD Primary Care Provider [phone] Encounter Details Date Type Department Care Team (Late st Contact Info) Description 10/14/2023 Procedure Pass [facility] Echocardiography [address] [place] [address] Social History Tobacco Use Types Packs/Day Years [...] Description 03/30/2025 8:30 AM EST Office Visit [facility] Cardiac Transplant [address] [place] [address] Unknown, Unknown, documented as of this encounter Visit Diagnoses Not on filedocumented in this encounter Additional Health Concerns Infection Onset Date Last Indicated Resolved Time CDiff-Risk 03/31/2024 03/31/2024 04/01/2024 7:03 AM EST CDiff-Risk 12/20/2024 12/21/2024 12/21/2024 5:39 PM EDT documented as of this encounter Care Teams Stack Attendant Relationship Specialty Start Date End Date Al Sy MD [address] [place] [address] PCP - General Internal Medicine 08/17/23 documented as of this encounter Additional Source Comments The information contained in this document represents components of the legal health record. It is not the complete legal health record.[facility]
--- OUTSIDE RECORDS SUMMARY | 2025-01-06 12:44 | XMS_ITS | Encounter Summary ---
Author Organization [facility] Address [address] [email or web address] [facility] [address] [place] [address] Phone Care Team Providers Care Ic Design Manager Name Role Phone Al Sy MD Primary Care Provider [phone] Encounter Details Date Type Department Care Team (Late st Contact Info) Description 08/21/2023 Procedure Pass [facility] Endoscopy Department [address] [place] [address] Social History Tobacco Use Types Packs/Day Years [...] Description 03/30/2025 8:30 AM EST Office Visit [facility] Cardiac Transplant [address] [place] [address] Unknown, Unknown, documented as of this encounter Visit Diagnoses Not on filedocumented in this encounter Additional Health Concerns Infection Onset Date Last Indicated Resolved Time CDiff-Risk 03/31/2024 03/31/2024 04/01/2024 7:03 AM EST CDiff-Risk 12/20/2024 12/21/2024 12/21/2024 5:39 PM EDT documented as of this encounter Care Teams Ic Design Manager Relationship Specialty Start Date End Date Al Sy MD [address] [place] [address] PCP - General Internal Medicine 08/17/23 documented as of this encounter Additional Source Comments The information contained in this document represents components of the legal health record. It is not the complete legal health record.[facility]
--- OUTSIDE RECORDS SUMMARY | 2025-01-06 12:44 | XMS_ITS ---
Author Organization [facility] Address [address] [place] [address] Phone Care Team Providers Care Concrete Pipe Plant Supervisor Name Role Phone Al Sy MD Primary Care Provider [phone] Transplant Episode Heart Recipient [facility] ([place], [place]) - [facility] Organ Received: Heart Transplanted on 10/04/2023 Marked as Active Follow-up on 10/04/2023 Heart CoordinatorElsa Cox RN Email: [email or web address] Donor Information Organ ABO Source Meets Risk Criteria HLA Match Mismatches Cross Match Heart Transplanted O DBD No A: B: DR: Heart Donor Serology Results Anti-CMV No results on file EBV IgG No results on file Anti-HBcAb No results on file Anti-HIV I/II No results on file Anti-HTLV I/II No results on file RPR/VDRL No results on file HBsAb No results on file EBNA No results on file Anti-HCV No results on file HBsAg No results on file HBV DNA No results on file EBV IgM No results on file Toxoplasma No results on file Anti-Teta nus No results on file Varicella Zoster No results on file Measles No results on file Mumps No results on file Quantiferon TB No results on file HSV 1 No results on file HSV 2 No results on file HSV RNA No results on file EBV (historical) No results on file HCV DUC No results on file HIV DUC No results on file HBV DUC No results on file SARS CoV-2 No results on file Care Team Name Role Phone Fax Email Elsa Cox RN Hopper Feeder [phone] [email or web address] [email or web address] Tax Manager [phone] [email or web address] Nazanin Acevedo MD Referring Physician [phone] N/A SINDY Khan Dietitian N/A N/A N/A Amada Shin, VAUDEVILLE ACTOR Customer Engagement Analyst N/A N/A N/A Ivone Coello MD Psychiatrist [phone] [email or web address] Missy Hermosillo, [facility] Pharmacist [phone] N/A [email or web address] Karina Smith CNP Nurse Practitioner [phone] [email or web address] Post-Transplant Pre-Transplant Admitted: 08/16/2023 Referred: 08/13/2023 Transplanted: 10/04/2023 Evaluation began: 4 Discharged: 10/15/2023 Committee: 08/21/2023 Center waitlisted: 4 Appointments (12/06/2024 - 02/06/2025) When With Visit Type Description 12/22/2024 Cardiology - [facility] Transplant Established Cardio Cardiac dysrhythmia (Primary Dx)
--- OUTSIDE RECORDS SUMMARY | 2025-01-06 12:45 | XMS_ITS | Encounter Summary ---
Author Organization [facility] Address [address] [email or web address] [facility] [address] [place] [address] Phone Care Team Providers Care Ornamental Iron Worker Helper Name Role Phone Al Sy MD Primary Care Provider [phone] Encounter Details Date Type Department Care Team (Late st Contact Info) Description 10/19/2023 Procedure Pass [facility] Cardiac Ems Driver [address] [place] [address] Social History Tobacco Use Types Packs/Day Years [...] Description 03/30/2025 8:30 AM EST Office Visit [facility] Cardiac Transplant [address] [place] [address] Unknown, UnknownMD documented as of this encounter Visit Diagnoses Not on filedocumented in this encounter Additional Health Concerns Infection Onset Date Last Indicated Resolved Time CDiff-Risk 03/31/2024 03/31/2024 04/01/2024 7:03 AM EST CDiff-Risk 12/20/2024 12/21/2024 12/21/2024 5:39 PM EDT documented as of this encounter Care Teams Ornamental Iron Worker Helper Relationship Specialty Start Date End Date Al Sy MD [address] [place] [address] PCP - General Internal Medicine 08/17/23 documented as of this encounter Additional Source Comments The information contained in this document represents components of the legal health record. It is not the complete legal health record.[facility]
--- OUTSIDE RECORDS SUMMARY | 2025-01-06 12:45 | XMS_ITS | Encounter Summary ---
Author Organization [facility] Address [address] [employer] [facility] [address] [place] [address] Phone Care Team Providers Care Nut Tightener Name Role Phone Al Sy MD Primary Care Provider [phone] Encounter Details Date Type Department Care Team (Late st Contact Info) Description 10/06/2023 Procedure Pass [facility] Echocardiography [address] [place] [address] Social History Tobacco Use Types Packs/Day Years [...] Description 03/30/2025 8:30 AM EST Office Visit [facility] Cardiac Transplant [address] [place] [address] Unknown, Unknown, documented as of this encounter Visit Diagnoses Not on filedocumented in this encounter Additional Health Concerns Infection Onset Date Last Indicated Resolved Time CDiff-Risk 03/31/2024 03/31/2024 04/01/2024 7:03 AM EST CDiff-Risk 12/20/2024 12/21/2024 12/21/2024 5:39 PM EDT documented as of this encounter Care Teams Nut Tightener Relationship Specialty Start Date End Date Al Sy MD [address] [place] [address] PCP - General Internal Medicine 08/17/23 documented as of this encounter Additional Source Comments The information contained in this document represents components of the legal health record. It is not the complete legal health record.[facility]
--- OUTSIDE RECORDS SUMMARY | 2025-01-06 12:45 | XMS_ITS | Clinical Summary ---
Author Organization [facility] Address [address] [place] [address] Care Team Providers Care Recreation Counselor Name Role Phone Al Sy MD Primary Care Provider [phone] Social History Tobacco Use Types Packs/Day Years [...] - season) 2024 Influenza Vaccine 12/09/2024 Insurance [facility] Care Teams Recreation Counselor Relationship Specialty Start Date End Date Al Sy MD [address] [place] [address] PCP - General Internal Medicine 08/15/23
--- OUTSIDE RECORDS SUMMARY | 2025-01-06 12:45 | XMS_ITS | Encounter Summary ---
Author Organization [facility] Address [address] [facility] [address] [place] [address] Phone Care Team Providers Care Caregiver Assisted Living Name Role Phone Al Sy MD Primary Care Provider [phone] Encounter Details Date Type Department Care Team (Late st Contact Info) Description 10/04/2023 Procedure Pass [facility] Echocardiography [address] [place] [address] Social History Tobacco Use Types Packs/Day Years [...] Description 03/30/2025 8:30 AM EST Office Visit [facility] Cardiac Transplant [address] [place] [address] Unknown, Unknown, documented as of this encounter Visit Diagnoses Not on filedocumented in this encounter Additional Health Concerns Infection Onset Date Last Indicated Resolved Time CDiff-Risk 03/31/2024 03/31/2024 04/01/2024 7:03 AM EST CDiff-Risk 12/20/2024 12/21/2024 12/21/2024 5:39 PM EDT documented as of this encounter Care Teams Caregiver Assisted Living Relationship Specialty Start Date End Date Al Sy MD [address] [place] [address] PCP - General Internal Medicine 08/17/23 documented as of this encounter Additional Source Comments The information contained in this document represents components of the legal health record. It is not the complete legal health record.[facility]
--- OUTSIDE RECORDS SUMMARY | 2025-01-06 12:45 | XMS_ITS | Encounter Summary ---
Author Organization [facility] Address [address] [facility] [address] [place] [address] Phone Care Team Providers Care Plastic Welding Machine Operator Name Role Phone Al Sy MD Primary Care Provider [phone] Encounter Details Date Type Department Care Team (Late st Contact Info) Description 01/02/2025 Telephone [facility] Cardiac Transplant [address] [place], [place] [id number] Gisell Quach, SANDRA [address] [place] [address] [email or web address] Social History Tobacco Use Types Packs/Day Years [...] on file documented as of this encounter Progress Notes * Gisell Quach, SANDRA - 01/02/2025 1:52 PM EDT Reached Mr. Felix to discuss lab work we are looking for after decreasing Tacro. He will be ableto complete this at the of the week. Gisell Quach Heart bandmill operator documented in this encounter Plan of Treatment Upcoming Encounters Date Type Department Care Team (Late st Contact Info) Description 03/30/2025 8:30 AM EST Office Visit [facility] Cardiac Transplant [address] [place] [address] Unknown, Unknown, documented as of this encounter Visit Diagnoses Not on filedocumented in this encounter Care Teams Plastic Welding Machine Operator Relationship Specialty Start Date End Date Al Sy MD [address] [place] [address] PCP - General Internal Medicine 08/17/23 documented as of this encounter Additional Source Comments The information contained in this document represents components of the legal health record. It is not the complete legal health record.[facility]
--- OUTSIDE RECORDS SUMMARY | 2025-01-06 12:45 | XMS_ITS | Encounter Summary ---
Author Organization [facility] Address [address] [facility] [address] [place] [address] Phone Care Team Providers Care Willow Specialists Name Role Phone Al Sy MD Primary Care Provider Encounter Details Date Type Department Care Team (Late st Contact Info) Description 01/28/2024 Procedure Pass [facility] Cardiac Plaster Helper [address] [place] [address] Social History Tobacco Use Types Packs/Day Years [...] Description 03/30/2025 8:30 AM EST Office Visit [facility] Cardiac Transplant [address] [place] [address] Unknown, UnknownMD documented as of this encounter Visit Diagnoses Not on filedocumented in this encounter Additional Health Concerns Infection Onset Date Last Indicated Resolved Time CDiff-Risk 03/31/2024 03/31/2024 04/01/2024 7:03 AM EST CDiff-Risk 12/20/2024 12/21/2024 12/21/2024 5:39 PM EDT documented as of this encounter Care Teams Willow Specialists Relationship Specialty Start Date End Date Al Sy MD [address] [place] [address] PCP - General Internal Medicine 08/17/23 documented as of this encounter Additional Source Comments The information contained in this document represents components of the legal health record. It is not the complete legal health record.[facility]
--- OUTSIDE RECORDS SUMMARY | 2025-01-06 12:45 | XMS_ITS | Encounter Summary ---
Author Organization [facility] Address [address] [email or web address] [facility] [address] [place] [address] Phone Care Team Providers Care Nuclear Technologist Name Role Phone Al Sy MD Primary Care Provider [phone] Encounter Details Date Type Department Care Team (Late st Contact Info) Description 10/14/2023 Procedure Pass [facility] Echocardiography [address] [place] [address] Social History Tobacco Use Types Packs/Day Years [...] 03/30/2025 8:30 AM EST Office Visit [facility] Cardiac Transplant [address] [place] [address] Unknown, Unknown, documented as of this encounter Visit Diagnoses Not on filedocumented in this encounter Additional Health Concerns Infection Onset Date Last Indicated Resolved Time CDiff-Risk 03/31/2024 03/31/2024 04/01/2024 7:03 AM EST CDiff-Risk 12/20/2024 12/21/2024 12/21/2024 5:39 PM EDT documented as of this encounter Care Teams Nuclear Technologist Relationship Specialty Start Date End Date Al Sy MD [address] [place] [address] PCP - General Internal Medicine 08/17/23 documented as of this encounter Additional Source Comments The information contained in this document represents components of the legal health record. It is not the complete legal health record.[facility]
--- OUTSIDE RECORDS SUMMARY | 2025-01-06 12:45 | XMS_ITS | Encounter Summary ---
Author Organization [facility] Address [address] [employer] [facility] [address] [place] [address] Phone Care Team Providers Care Brick Siding Applicator Name Role Phone Al Sy MD Primary Care Provider [phone] Encounter Details Date Type Department Care Team (Late st Contact Info) Description 12/16/2024 Ancillary Orders [facility] Cardiac Transplant [address] [place] [address] Elsa Cox, RN [address] [place] [address] [email or web address] Heart replaced by transplant Social History Tobacco [...] Description 03/30/2025 8:30 AM EST Office Visit [facility] Cardiac Transplant [address] [place] [address] Unknown, Hailee, documented as of this encounter Visit Diagnoses Diagnosis Heart replaced by transplant documented in this encounter Additional Health Concerns Infection Onset Date Last Indicated Resolved Time CDiff-Risk 12/20/2024 12/21/2024 12/21/2024 5:39 PM EDT documented as of this encounter Care Teams Brick Siding Applicator Relationship Specialty Start Date End Date Al Sy MD [address] [place] [address] PCP - General Internal Medicine 08/17/23 documented as of this encounter Additional Source Comments The information contained in this document represents components of the legal health record. It is not the complete legal health record.[facility]
--- OUTSIDE RECORDS SUMMARY | 2025-01-06 12:45 | XMS_ITS | Encounter Summary ---
Author Organization [facility] Address [address] [facility] [address] [place] [address] Phone Care Team Providers Care Communications Billing Analyst Name Role Phone Al Sy MD Primary Care Provider [phone] Encounter Details Date Type Department Care Team (Late st Contact Info) Description 10/11/2023 Procedure Pass [facility] Echocardiography [address] [place] [address] Social History Tobacco Use Types Packs/Day Years [...] Description 03/30/2025 8:30 AM EST Office Visit [facility] Cardiac Transplant [address] [place] [address] Unknown, Unknown, documented as of this encounter Visit Diagnoses Not on filedocumented in this encounter Additional Health Concerns Infection Onset Date Last Indicated Resolved Time CDiff-Risk 03/31/2024 03/31/2024 04/01/2024 7:03 AM EST CDiff-Risk 12/20/2024 12/21/2024 12/21/2024 5:39 PM EDT documented as of this encounter Care Teams Communications Billing Analyst Relationship Specialty Start Date End Date Al Sy MD [address] [place] [address] PCP - General Internal Medicine 08/17/23 documented as of this encounter Additional Source Comments The information contained in this document represents components of the legal health record. It is not the complete legal health record.[facility]
--- OUTSIDE RECORDS SUMMARY | 2025-01-06 12:45 | XMS_ITS | Encounter Summary ---
Author Organization [facility] Address [address] [facility] [address] [place] [address] Phone Care Team Providers Care Certified Retinal Angiographer Name Role Phone Al Sy MD Primary Care Provider [phone] Reason for Visit * Reason Comments Medication Refill Encounter Details Date Type Department Care Team (Late st Contact Info) Description 12/16/[address] [facility] Cardiac Transplant [address] [place] [address] Kadie King CNP [address] [place] [address] [email or web address] Medication Refill Social History Tobacco Use Types Packs/Day Years [...] 03/30/2025 8:30 AM EST Office Visit [facility] Cardiac Transplant [address] [place] [address] Unknown, Hailee, documented as of this encounter Visit Diagnoses Not on filedocumented in this encounter Additional Health Concerns Infection Onset Date Last Indicated Resolved Time CDiff-Risk 12/20/2024 12/21/2024 12/21/2024 5:39 PM EDT documented as of this encounter Care Teams Certified Retinal Angiographer Relationship Specialty Start Date End Date Al Sy MD [address] [place] [address] PCP - General Internal Medicine 08/17/23 documented as of this encounter Additional Source Comments The information contained in this document represents components of the legal health record. It is not the complete legal health record.[facility]
--- OUTSIDE RECORDS SUMMARY | 2025-01-06 12:45 | XMS_ITS | Encounter Summary ---
Author Organization [facility] Address [address] [employer] [facility] [address] [place] [address] Phone Care Team Providers Care Public Health Physician Name Role Phone Al Sy MD Primary Care Provider [phone] Encounter Details Date Type Department Care Team (Late st Contact Info) Description 10/14/2023 Procedure Pass [facility] Echocardiography [address] [place] [address] Social History Tobacco Use Types Packs/Day Years [...] Description 03/30/2025 8:30 AM EST Office Visit [facility] Cardiac Transplant [address] [place] [address] Unknown, Unknown, documented as of this encounter Visit Diagnoses Not on filedocumented in this encounter Additional Health Concerns Infection Onset Date Last Indicated Resolved Time CDiff-Risk 03/31/2024 03/31/2024 04/01/2024 7:03 AM EST CDiff-Risk 12/20/2024 12/21/2024 12/21/2024 5:39 PM EDT documented as of this encounter Care Teams Public Health Physician Relationship Specialty Start Date End Date Al Sy MD [address] [place] [address] PCP - General Internal Medicine 08/17/23 documented as of this encounter Additional Source Comments The information contained in this document represents components of the legal health record. It is not the complete legal health record.[facility]
--- OUTSIDE RECORDS SUMMARY | 2025-01-06 12:45 | XMS_ITS | Clinical Summary ---
Author Organization [facility] Address [id number] [place] [address] Phone Care Team Providers Care Facilities Operations Technician Name Role Phone Guero Randle MD Primary Care Provider [phone] Allergies Active Allergy Reactions Criticality Noted Date Comments Norberto Inhibitors Other (See Comments) 11/24/2006 see comment. cough. cough. cough Cough. cough. He has possible intolerance to NORBERTO inhibitor with a cough Medications FLUoxetine (PROZAC) 40 MG capsule Take 1 capsule (40 mg total) by mouth daily. 30 capsule 10/15/19 24 Active levothyroxine (SYNTHROID, LEVOTHROID) 75 MCG tablet Take 1 tablet (75 mcg total) by mouth every morning. 30 tablet 10/15/19 24 Active Additional Information Patient taking differently:75 mcg Oral Every morning,Takes 1.5 tablets on Thursday, Reported on 09/23/2024 mycophenolate sodium (MYFORTIC) [address] tabletIndicat ions:Heart transplant status Take 2 tablets (720 mg total) by mouth 2 (two) times a day. 180 tablet 6 04/01/20 24 025 Active rosuvastatin (CRESTOR) 20 MG tabletIndicat ions:Heart replaced by transplant Take 1 tablet (20 mg total) by mouth daily. 90 tablet 3 06/01/19 25 Active loperamide (IMODIUM A-D) 2 mg tablet Take 1 tablet (2 mg total) by mouth 4 (four) times a day as needed for diarrhea. 30 tablet 3 08/27/19 25 Active aspirin 81 MG EC tabletIndicat ions:Heart transplant status TAKE 1 TABLET BY MOUTH EVERY DAY 30 tablet 11 11/18/19 25 Active tacrolimus (PROGRAF) 1 MG capsule Take 3 capsules (3 mg total) by mouth 2 (two) times a day. 180 capsule 12/23/19 25 Active vitamin E 400 UNIT capsuleIndica tions:Heart transplant status Take 1 capsule (400 Units total) by mouth 2 (two) times a day. 180 capsule 3 08/27/19 25 025 Discontinued(No longer taking) tacrolimus (PROGRAF) 1 MG capsule Take 4 capsules (4 mg total) by mouth 2 (two) times a day. 240 capsule 11 09/23/19 25 025 Discontinued cholecalcifer ol (VITAMIN D3) 2,000 unit capsuleIndica tions:Heart replaced by transplant TAKE 1 CAPSULE BY MOUTH DAILY 30 capsule 11 09/29/19 25 025 Discontinued(No longer taking) ASCORBIC ACID WITH SUSAN HIPS 500 MG tabletIndicat ions:Heart transplant status TAKE 1 TABLET BY MOUTH 2(TWO) TIMES A DAY 60 tablet 11/18/19 25 025 Discontinued(No longer taking) Active Problems Problem Noted Date Diagnosed Date Anemia 07/08/2024 Leucopenia 07/08/2024 Immunosuppression 07/08/2024 Stage 3a chronic kidney disease 07/08/2024 Diarrhea 07/08/2024 Coarse tremors 03/31/2024 Mixed hyperlipidemia 03/31/2024 Diarrhea due to drug 03/31/2024 skilled nursing systemic steroid user 11/16/2023 Heart replaced by transplant 10/07/2023 Cardiogenic shock 10/07/2023 Stress hyperglycemia 10/07/2023 Acute postoperative pain 10/07/2023 ABLA (acute blood loss anemia) 10/07/2023 Thrombocytopenia 10/07/2023 Resolved Problems Problem Noted Date Diagnosed Date Resolved Date Encounter for palliative care 08/19/2023 10/07/2023 Assessment & Plan (08/28/2023 12:52 PM EDT): #coping Mitchell is incredibly calm and collected, and his physical manifestations of anxiety have abated- sleeping at night, GI issues resolved. Worry is gone now that he has a plan and is waiting for a heart. Has been on fluoxetine for 1.5 years at this point and feels he is doing well on the medication. He has considered coming off the medication prior to this admission and is open to recommendations for med mgmt. He is no longer asking to taper off this medication. From [facility] standpoint, this medication is likely why he is navigating this experience calm and collected. Would continue current regimen of fluoxetine Will continue to follow and support PRN Cardiogenic shock 08/16/2023 10/07/2023 Biventricular heart failure 08/16/2023 10/07/2023 Encounters Date Type Department Care Team Description 01/02/2025 Telephone [facility] Cardiac Transplant [address] [place] [address] Gisell Quach RN 12/22/2024 8:37 AM EDT - 12/22/2024 11:59 PM EDT Hospital Encounter [facility] Phlebotomy Mitchell [address] [place] [address] Unknown, Unknown, MD Discharge Disposition: Home or Self Care 12/22/2024 8:00 AM EDT Office Visit [facility] Cardiac Transplant [address] [place] [address] Unknown, Unknown, Karina Olmos CNP Cardiac dysrhythmia (Primary Dx) 12/22/2024 Documentation [facility] Cardiac Transplant [address] [place] [address] Karina Smith CNP 12/21/2024 4:20 PM EDT - 12/21/2024 11:59 PM EDT Hospital Encounter [facility] [address] [place] [address] Sharifa Villa NP Discharge Disposition: Home or Self Care 12/21/2024 Telephone [facility] Cardiac Transplant [address] [place] [address] Karina Smith, STICK FEEDER 12/20/2024 3:46 PM EDT - 12/20/2024 11:59 PM EDT Hospital Encounter [facility] Laboratory [address] [place] [address] Sharifa Villa NP Discharge Disposition: Home or Self Care 12/20/2024 Transcribe Orders [facility] [address] [place] [address] Sharifa Villa NP Diarrhea, functional (Primary Dx) 12/20/2024 Documentation [facility] Cardiac Transplant [address] [place] [address] Karina Smith, STICK FEEDER 12/17/2024 Orders Only [facility] Cardiac Transplant [address] [place] [address] Karina Smith, JUAN DANIEL Heart replaced by transplant (Primary Dx) 12/16/2024 Refill [facility] Cardiac Transplant [address] [place] [address] Palljulio caJuvenala, STICK FEEDER Medication Refill 12/16/2024 Ancillary Orders [facility] Cardiac Transplant [address] [place] [address] Elsa Cox RN Heart replaced by transplant 12/15/2024 Telephone [facility] Cardiac Transplant [address] [place] [address] Karina Smith, STICK FEEDER 12/02/2024 Ancillary Orders [facility] Cardiac Transplant [address] [place] [address] Elsa Cox, care center manager replaced by transplant 11/28/2024 Telephone [facility] Cardiac Transplant [address] [place] [address] Elsa Cox, RN Over due CMV testing 11/18/2024 Ancillary Orders [facility] Cardiac Transplant [address] [place] [address] Elsa Cox care center manager replaced by transplant 11/17/2024 Refill [facility] Cardiac Transplant [address] [place] [address] Palljulio caJuvenala, STICK FEEDER Medication Refill 11/09/2024 Telephone [facility] Cardiac Transplant [address] [place] [address] Elsa Cox RN wrong CMV run 10/24/2024 Telephone [facility] Cardiac Transplant [address] [place] [address] Joaquín Gonzales MD Pt advice 10/21/2024 Telephone [facility] [address] [place] [address] Karina Smith CNP Lever/Pt advice 10/10/2024 Orders Only [facility] Cardiac Transplant [address] [place] [address] Gretchen Wheat RN Heart replaced by transplant (Primary Dx) from Last 3 Months Immunizations Immunization Administration Dates Next Due COVID-19 Pfizer Comirnaty Vaccine 12+ 08/26/2023 Hepatitis A, Adult 08/23/2023 Hepatitis B CpG 09/22/2023,08/21/2023 Influenza High-Dose Trivalent Preservative Free IM 03/31/2024 Influenza, Unspecified Formulation 05/10/2018 Pneumococcal conjugate PCV20 07/23/2022 RSV Vaccine (bivalent) 08/24/2023 Tdap 08/23/2023,07/28/2013 Zoster recombinant 08/20/2023 Social History Tobacco Use Types Packs/Day Years Used Date Smoking Tobacco: Never Smokeless Tobacco: Never Tobacco Cessation:Counseling Given: Not Answered Education Answer Date Recorded Are you interested [...] on file Sexual Orientation Not on file Last Filed Vital Signs Vital Sign Reading Time Taken Comments Blood Pressure 106/64 12/22/2024 7:54 AM EDT Pulse 89 12/22/2024 7:54 AM EDT Temperature 36.2 C (97.2 F) 09/23/2024 11:15 AM EDT Respiratory Rate 18 09/23/2024 3:00 PM EDT Oxygen Saturation 98% 12/22/2024 7:54 AM EDT Inhaled Oxygen Concentration 40% 10/06/2023 4 :00 PM EDT Weight 81 kg (178 lb 8 oz) 12/22/2024 7:54 AM ED T w shoes Height 182.9 cm (6') 08/08/2024 9:07 AM EDT Body Mass Index 24.21 08/08/2024 9:07 AM EDT Plan of Treatment Upcoming Encounters Date Type Department Care Team (Late st Contact Info) Description 03/30/2025 8:30 AM EST Office Visit [facility] Cardiac Transplant [address] [place] [address] Unknown, Unknown, Health Maintenance Due Date Last Done Comments DEPRESSION SCREENING 1981 FIT TEST 2014 FOBT 2014 SIGMOIDOSCOPY 2014 VIRTUAL COLONOSCOPY 2014 ZOSTER VACCINES (2 of 2) 10/15/2023 08/20/2023 COVID-19 VACCINE (5 - Mixed Product risk season) 2024 03/30/2024, 08/26/2023, 09/14/2020, Additional history exists INFLUENZA VACCINE (#1) 2024 03/31/2024, 2017 TSH LEVEL 08/08/2025 08/08/2024, 01/10, 01/07/2024, Additional history exists COLOGUARD 01/13/2026 01/13/2023 LIPID PANEL 12/22/2029 12/22/2024, 09/08, 08/08/2024, Additional history exists COLONOSCOPY 08/20/2033 08/21/2023 COLORECTAL CANCER SCREENING 08/20/2033 Adult Td,Tdap Booster 08/22/2033 08/23/2023, 014 PNEUMOCOCCAL VACCINES (50+ years) Completed 07/23/2022 HEPATITIS A VACCINES Aged Out 08/23/2023 No long er eligible based on patient's age to complete this topic HEPATITIS C SCREENING Completed 11/02/2023 , 11/02/2023, 08/17/2023 HIV ONE-TIME SCREENING (18-65 YEARS) Completed 11/02/2023 SMOKING STATUS SCREENING (Once After 26 Yrs) Completed 12/22/2024 HIB VACCINES Aged Out No longer eligi ble based on patient's age to complete this topic MENINGOCOCCAL VACCINES (ACWY) Aged Out No longer eligible based on patient's age to complete this topic MENINGOCOCCAL VACCINES (B) Aged Out N o longer eligible based on patient's age to complete this topic Medical Devices Not on file Procedures Procedure Name Priority Date/Time Associated Diagnosis Comments NT-PROBNP Routine 12/22/2024 8:47 AM EDT Heart replaced by transplant Heart failure LIPID PANEL Routine 12/22/2024 8:47 AM EDT Mixed hyperlipidemia Heart replaced by transplant CPK (CREATINE KINASE) Routine 12/22/2024 8:47 AM EDT Heart replaced by transplant COMPREHENSIVE METABOLIC PANEL Routine 12/22/2024 8:47 AM EDT Heart transplant status MAGNESIUM Routine 12/22/2024 8:47 AM EDT Heart replaced by transplant TACROLIMUS LEVEL Routine 12/22/2024 8:47 AM EDT Heart replaced by transplant CBC AND DIFFERENTIAL Routine 12/22/2024 8:47 AM EDT Heart replaced by transplant Cytomegalovirus (CMV) PCR, blood Routine 12/22/2024 8:47 AM EDT Heart replaced by transplant ECG 12-LEAD Routine 12/22/2024 7:56 AM EDT Cardiac dysrhythmia CALPROTECTIN, STOOL Routine 12/21/2024 3 :40 PM EDT Diarrhea, functional PANCREATIC ELASTASE, STOOL Routine 12/21/2024 3:40 PM EDT Diarrhea, functional C. DIFFICILE PCR Routine 12/21/2024 3:40 PM EDT Diarrhea, functional ZINC Routine 12/20/2024 3:54 PM EDT Diarrhea, functional 25-OH VITAMIN D Routine 12/20/2024 3:54 PM EDT Diarrhea, functional VITAMIN B12 Routine 12/20/2024 3:54 PM EDT Diarrhea, functional VITAMIN A Routine 12/20/2024 3:54 PM EDT Diarrhea, functional MAGNESIUM Routine 12/20/2024 3:54 PM EDT Diarrhea, functional FOLATE Routine 12/20/2024 3:54 PM EDT Diarrhea, functional FERRITIN Routine 12/20/2024 3:54 PM EDT Diarrhea, functional IMMUNOGLOBULIN A Routine 12/20/2024 3:54 PM EDT Diarrhea, functional C-REACTIVE PROTEIN Routine 12/20/2024 3: 54 PM EDT Diarrhea, functional COMPREHENSIVE METABOLIC PANEL Routine 12/20/2024 3:54 PM EDT Diarrhea, functional CBC Routine 12/20/2024 3:54 PM EDT Diarrhea, functional TISSUE TRANSGLUTAMINASE IGA Routine 12/20/2024 3:54 PM EDT Diarrhea, functional Cytomegalovirus (CMV) PCR, blood Routine 12/15/2024 Cytomegalovirus (CMV) PCR, blood Routine 11/28/2024 2:27 PM EDT Cytomegalovirus (CMV) PCR, blood Routine 11/09/2024 4:46 PM EDT Cytomegalovirus (CMV) PCR, blood Routine 10/24/2024 3:17 PM EDT CBC AND DIFFERENTIAL Routine 10/06/2024 10:37 AM EDT Cytomegalovirus (CMV) PCR, blood Routine 10/06/2024 10:37 AM EDT TSH WITH REFLEX Routine 08/08/2024 9:21 AM EDT Heart replaced by transplant HEPATITIS C ANTIBODY, QUALITATIVE Routine 11/02/2023 8:34 AM EDT Heart replaced by transplant ENDOSCOPY, COLON 08/21/2023 4:11 PM EDT from Last 3 Months or Most Recently Relevant to Health Maintenance Results * (ABNORMAL) Comprehensive metabolic panel (12/22/2024 8:47 AM EDT) Only the most recent of2 resultswithin the time period is included. SODIUM 141 136 - 145 mmol/L [facility] POTASSIUM 4.9 3.4 - 5.1 mmol/L [facility] CHLORIDE 108(H) 98 - 107 mmol/L [facility] CO2 22 22 - 31 mmol/L [facility] BUN 32(H) 6 - 23 mg/dL [facility] CREATININE 1.28(H) 0.50 - 1.20 mg/dL [facility] GLUCOSE 89 70 - 100 mg/dL [facility] ALBUMIN 4.4 3.5 - 5.2 g/dL [facility] TOTAL PROTEIN 6.6 6.4 - 8.3 g/dL [facility] CALCIUM 9.2 8.8 - 10.7 mg/dL [facility] ALKALINE PHOSPHATASE 54 35 - 130 U/L [facility] TOTAL BILIRUBIN 0.3 0.0 - 1.0 mg/dL [facility] AST 23 10 - 50 U/L [facility] ALT 15 10 - 50 U/L [facility] GLOBULIN 2.2 2.2 - 4.2 g/dL [facility] EGFR 66 >59 mL/min/1. 73m2 [facility] Comment:Estimated glomerular filtration rate calculated using the CKD-EPI refit equation. ANION GAP 11 7 - 17 mmol/L [facility] 12/22/2024 8:47 AM EDT 12/22/2024 9:42 AM EDT us Karina Smith STICK FEEDER LAB BLOOD ORDERABLES Fi nal Result [facility] [address] [place] [id number] * Tacrolimus level (12/22/2024 8:47 AM EDT) TACROLIMUS 8.3 3.0 - 15.0 ng/mL [facility] Comment:REFERENCE RANGE IS V ARIABLE AND DEPENDS ON CLINICAL INDICATION. CONTACT TRANSPLANT TEAM OR PHARMACY WITH ANY QUESTIONS. THIS TEST AND ITS PERFORMANCE CHARACTERISTICS WERE DETERMINED BY THE CLINICAL CHEMISTRY LAB, [facility]. IT HAS NOT BEEN CLEARED OR APPROVED BY THE U.S. FDA, WHICH HAS DETERMINED THAT SUCH CLEARANCE OR APPROVAL IS NOT NECESSARY. 12/22/2024 8:47 AM EDT 12/22/2024 9:42 AM EDT Liu Chu MD LAB BLOOD ORDERABLES Fi nal Result Performing Organization Address [facility] de Phone Number [phone] * Cytomegalovirus (CMV) PCR, blood (12/22/2024 8:47 AM EDT) Only the most recent of6 resultswithin the time period is included. [facility] CMV VIRAL LOAD TARGET NOT DETECTED TARGET NOT DETECTED IU/mL [facility] CMV Viral Load Log 10 TARGET NOT DETECTED TARGET NOT DETECTED log IU/mL [facility] Comment: NO VIRAL DNA DETECTED ASSAY RANGE: 35-10,000,000 IU/mL (1.54 log - 7 log IU/mL) Blood 12/22/2024 8:47 AM EDT 12/22/2024 10:38 AM EDT Kadie King STICK FEEDER NON CULTURE MICROBIOLOGY Final Result Performing Organization Address [facility] de Phone Number [address] [address] * (ABNORMAL) CBC and differential (12/22/2024 8:47 AM EDT) Only the most recent of2 resultswithin the time period is included. [facility] WBC 3.87(L) 4.00 - 11.00 K/uL [facility] RBC 4.25(L) 4.50 - 5.90 M/uL [facility] HGB 11.4(L) 13.5 - 17.5 g/dL [facility] HCT 34.9(L) 41.0 - 53.0 % [facility] PLT 189 150 - 450 K/uL [facility] MCV 82.1 80.0 - 100.0 fL [facility] MCH 26.8(L) 27.0 - 31.0 pg [facility] MCHC 32.7 32.0 - 36.0 g/dL [facility] RDW 13.2 11.5 - 14.5 % [facility] MPV 11.3 8.4 - 12.0 fL [facility] NRBC 0.00 0.00 /100 WBCs [facility] ABSOLUTE NRBC 0.00 0.00 K/uL [facility] DIFF METHOD Auto [facility] NEUTS 61.2 48.0 - 76.0 % [facility] LYMPHS 26.9 18.0 - 41.0 % [facility] MONOS 9.0 4.0 - 11.0 % [facility] EOS 1.3 0.0 - 5.0 % [facility] BASOS 0.8 0.0 - 1.5 % [facility] % IMMATURE GRANS 0.8 0.0 - 0.9 % [facility] ABSOLUTE NEUTS 2.37 1.92 - 7.60 K/uL [facility] Comment:1.21-5.39 cells/KL i s the reference range for individuals with the Edgar null phenotype ABSOLUTE LYMPHS 1.04 0.72 - 4.10 K/uL [facility] ABSOLUTE MONOS 0.35 0.16 - 1.10 K/uL [facility] ABSOLUTE EOS 0.05 0.00 - 0.50 K/uL [facility] ABSOLUTE BASOS 0.03 0.00 - 0.15 K/uL [facility] ABS IMMATURE GRANS 0.03 0.00 - 0.09 K/uL [facility] ABSOLUTE NEUTROPHIL COUNT 2.37 1.92 - 7.60 K/uL [facility] Comment: Automated cell count. Manual ANC may differ if performed. 1.21-5.39 cells/KL is the reference range for individuals with the Edgar null phenotype Blood 12/22/2024 8:47 AM EDT 12/22/2024 9:42 AM EDT us Liu Chu MD LAB BLOOD ORDERABLES Fi nal Result Performing Organization Address City/State/[facility] Co de Phone Number [facility] [address] [place] [phone] * NT-proBNP (12/22/2024 8:47 AM EDT) Pathologist [facility] NT-PROBNP 342 <900 pg/mL [facility] Comment: 12/22/2024 8:47 AM EDT 12/22/2024 9:42 AM EDT Kadie King STICK FEEDER LAB BLOOD ORDERABLES Final Res ult Performing Organization Address [facility] Co de Phone Number [facility] [address] [place] [phone] * Magnesium (12/22/2024 8:47 AM EDT) Only the most recent of2 resultswithin the time period is included. [facility] MAGNESIUM 2.1 1.7 - 2.6 mg/dL [facility] 12/22/2024 8:47 AM EDT 12/22/2024 9:42 AM EDT Karina Smith STICK FEEDER LAB BLOOD ORDERABLES Fi nal Result Performing Organization Address [facility] Co de Phone Number [facility] [address] [place] [phone] * CPK (creatine kinase) (12/22/2024 8:47 AM EDT) Pathologist [facility] CREATINE KINASE 62 39 - 308 U/L [facility] 12/22/2024 8:47 AM EDT 12/22/2024 9:42 AM EDT Kadie King STICK FEEDER LAB BLOOD ORDERABLES Final Res ult Performing Organization Address [facility] Co de Phone Number [address] [address] * Lipid panel (12/22/2024 8:47 AM EDT) Pathologist [facility] CHOLESTEROL 140 <200 mg/dL [facility] TRIGLYCERIDES 79 35 - 150 mg/dL [facility] HDL 47 40 - 80 mg/dL [facility] CALCULATED LDL 77 50 - 129 mg/dL [facility] VLDL 16 <31 mg/dL [facility] CARDIAC RISK RATIO 3.0 0.0 - 4.0 [facility] 12/22/2024 8:47 AM EDT 12/22/2024 9:42 AM EDT Kadie King [facility] LAB BLOOD ORDERABLES Final Res ult Performing Organization Address [facility] Co de Phone Number [facility] [address] [place] [phone] * ECG 12-LEAD (12/22/2024 7:56 AM EDT) Ventricular Rate EKG/MIN 89 BPM [facility] Atrial Rate 89 BPM [facility] VT Interval 148 ms [facility] QRS Duration 98 ms [facility] QT Interval 374 ms [facility] QTC Interval 455 ms [facility] P Pull[place] 39 degrees [facility] R Wave [place] 41 degrees [facility] T Wave [place] 38 degrees [facility] 12/22/2024 7:56 AM EDT Narrative [facility] - 12/22/2024 9:47 AM EDT Normal sinus rhythm Low voltage QRS, consider pulmonary disease, pericardial effusion, or normal variant Incomplete right bundle branch block Borderline ECG When compared with ECG of 22-Sep-2024 11:01, No significant change was found Karina Smith STICK FEEDER ECG ORDERABLES Final R esult Performing Organization Address [facility] Co de Phone Number [facility] * Calprotectin, stool (12/21/2024 3:40 PM EDT) STOOL CALPROTECTIN <5 mcg/g [facility]/Michael [facility] Comment: (NOTE) Reference Range: <50 Normal 50-120 Borderline >120 Elevated LIQUID STOOL. Calprotectin in Crohn's disease and ulcerative colitis can be five to several thousand times above the reference population (50 mcg/g or less). Levels are usually 50 mcg/g or less in healthy patients and with irritable bowel syndrome. Repeat testing in 4-6 weeks is suggested for borderline values. Stool (Stool) 12/21/2024 3:4 0 PM EDT 12/21/2024 4:32 PM EDT Sharifa Villa NP BODY FLUIDS AND STOOLS ORDERABLES Final Result Performing Organization Address City/[facility]/ZIP Co de Phone Number [facility] [address] [place] [address], [facility] [phone] * C. DIFFICILE PCR (12/21/2024 3:40 PM EDT) C.DIFFICILE PCR Negative Negative [facility] C.DIFFICILE STRAIN PRESUMPTIVE NEGATIVE PRESUMPTIVE NEGATIVE [facility] Comment:Detection of 027/NAP 1/BI strains of C.difficile is presumptive and is solely for epidemiological purposes and is not intended to guide or monitor treatment of infections. Stool (Stool) 12/21/2024 3:4 0 PM EDT 12/21/2024 4:33 PM EDT Sharifa Villa NP MICROBIOLOGY - GENERAL ORDERABLES Final Result Performing Organization Address [facility] Phone Number [address] [phone] * Pancreatic Elastase, Stool (12/21/2024 3:40 PM EDT) Pancreatic Elastase, Feces 324 >200 (Normal) mcg/g [facility] [address] [facility] Stool (Stool) 12/21/2024 3:4 0 PM EDT 12/21/2024 4:32 PM EDT Sharifa Villa NP BODY FLUIDS AND STOOLS ORDERABLES Final Result Performing Organization Address [facility] Co de Phone Number [facility] [address] [place] [address] * (ABNORMAL) Zinc (12/20/2024 3:54 PM EDT) Zinc, S 54(L) 60 - 106 mcg/dL [facility] [address] [facility] Comment: (NOTE) ADDITIONAL INFORMATION This test was developed and its performance characteristics determined by [facility] in a manner consistent with CLIA requirements. This test has not been cleared or approved by the U.S. Food and Drug Administration. Blood 12/20/2024 3:54 PM EDT 12/20/2024 4:02 PM EDT Sharifa Villa NP LAB BLOOD ORDER MELLISSA Final Result Performing Organization Address [facility] Co de Phone Number [facility] [address] [place] [address] * Tissue transglutaminase IgA (12/20/2024 3:54 PM EDT) [facility] TTG IGA ANTIBODY <1.2 <4.0 (Negative) U/mL [facility]/PATH SUPERIOR KRAUS Blood 12/20/2024 3:54 PM EDT 12/20/2024 4:02 PM EDT Sharifa Villa NP LAB BLOOD ORDER MELLISSA Final Result Performing Organization Address [facility] Co de Phone Number [facility]/PATH [address] [place] [address] * (ABNORMAL) Vitamin A (12/20/2024 3:54 PM EDT) [facility] VITAMIN A 81.1(H) 32.5 - 78.0 mcg/dL [facility]/PATH SUPERIOR KRAUS Comment: (NOTE) ADDITIONAL INFORMATION This test was developed and its performance characteristics determined by [facility] in a manner consistent with CLIA requirements. This test has not been cleared or approved by the U.S. Food and Drug Administration. Blood 12/20/2024 3:54 PM EDT 12/20/2024 4:02 PM EDT Sharifa Villa NP LAB BLOOD ORDER MELLISSA Final Result [facility]/PATH [address] [place] [address] * 25-OH vitamin D (12/20/2024 3:54 PM EDT) Pathologist [facility] 25 [place] VIT D (TOTAL) 49 30 - 60 ng/mL [facility] Blood 12/20/2024 3:54 PM EDT 12/20/2024 4:02 PM EDT Sharifa Villa NP LAB BLOOD ORDER MELLISSA Final Result Performing Organization Address City/[facility]/ZIP Co de Phone Number [address] [address] * (ABNORMAL) CBC (12/20/2024 3:54 PM EDT) [facility] WBC 3.42(L) 4.00 - 11.00 K/uL [facility] RBC 4.29(L) 4.50 - 5.90 M/uL [facility] HGB 11.5(L) 13.5 - 17.5 g/dL [facility] HCT 34.9(L) 41.0 - 53.0 % [facility] PLT 200 150 - 450 K/uL [facility] MCV 81.4 80.0 - 100.0 fL [facility] MCH 26.8(L) 27.0 - 31.0 pg [facility] MCHC 33.0 32.0 - 36.0 g/dL [facility] RDW 12.9 11.5 - 14.5 % [facility] MPV 11.3 8.4 - 12.0 fL [facility] NRBC 0.00 0.00 /100 WBCs [facility] ABSOLUTE NRBC 0.00 0.00 K/uL [facility] Blood 12/20/2024 3:54 PM EDT 12/20/2024 4:02 PM EDT Sharifa Villa YELLOW PAGES SPACE SALESPERSON LAB BLOOD ORDER MELLISSA Final Result Performing Organization Address [facility] de Phone Number [address] [address] * C-Reactive Protein (12/20/2024 3:54 PM EDT) C REACTIVE PROTEIN <3.0 0.0 - 4.0 mg/L [facility] Blood 12/20/2024 3:54 PM EDT 12/20/2024 4:02 PM EDT Sharifa Villa YELLOW PAGES SPACE SALESPERSON LAB BLOOD ORDER MELLISSA Final Result Performing Organization Address [facility] de Phone Number [address] [address] * Immunoglobulin A (12/20/2024 3:54 PM EDT) IgA 138 70 - 400 mg/dL [facility] Blood 12/20/2024 3:54 PM EDT 12/20/2024 4:02 PM EDT Sharifa Villa YELLOW PAGES SPACE SALESPERSON LAB BLOOD ORDER MELLISSA Final Result Performing Organization Address [facility] de Phone Number [address] [address] * (ABNORMAL) Folate (12/20/2024 3:54 PM EDT) FOLIC ACID >20.0(H) 4.2 - 19.9 ng/mL [facility] Blood 12/20/2024 3:54 PM EDT 12/20/2024 4:02 PM EDT Sharifa Villa YELLOW PAGES SPACE SALESPERSON LAB BLOOD ORDER MELLISSA Final Result Performing Organization Address [facility]/ZIP Co de Phone Number [address] [address] * Ferritin (12/20/2024 3:54 PM EDT) FERRITIN 73 30 - 400 ug/L [facility] Blood 12/20/2024 3:54 PM EDT 12/20/2024 4:02 PM EDT Sharifa Wil Daisy YELLOW PAGES SPACE SALESPERSON LAB BLOOD ORDER MELLISSA Final Result Performing Organization Address [facility] Co de Phone Number [address] [address] * (ABNORMAL) Vitamin B12 (12/20/2024 3:54 PM EDT) VITAMIN B12 1,388(H) 232 - 1,245 pg/mL [facility] Blood 12/20/2024 3:54 PM EDT 12/20/2024 4:02 PM EDT Sharifa Wil Villa YELLOW PAGES SPACE SALESPERSON LAB BLOOD ORDER MELLISSA Final Result Performing Organization Address [facility] Co de Phone Number [address] [address] * TSH with reflex (08/08/2024 9:21 AM EDT) TSH 1.10 0.50 - 5.70 uIU/mL [facility] Blood 08/08/2024 9:21 AM EDT 08/08/2024 9:41 AM EDT Kadie King STICK FEEDER LAB BLOOD ORDERABLES Final Res ult [facility] [address] [place] [address] * Hepatitis C antibody, qualitative (11/02/2023 8:34 AM EDT) HCV Nonreactive Nonreactive [facility] Blood 11/02/2023 8:34 AM EDT 11/02/2023 8:54 AM EDT us Kadie King STICK FEEDER LAB BLOOD ORDERABLES Final Res ult [facility] [address] [place] [address] * ENDOSCOPY, COLON (08/21/2023 4:11 PM EDT) 08/21/2023 4:11 PM EDT Narrative Transcriptions Gerardo Montemayor MD - 08/21/2023 4:11 PM EDT [facility] Gastroenterology Patient Name: Mitchell Felix Procedure Date: 08/21/2023 4:11 PM Date of : 1970 Admit Type: Inpatient Age: 53 Room: 01 Gender: Male Note Status: Finalized Attending MD: GERARDO MONTEMAYOR M.D. Procedure: Colonoscopy Indications: Screening for colorectal malignant neoplasm, heart transplant pre- work up Patient Profile: This is a 53 year old male. Refer to note in patient chart for documentation of history and physical. Providers: GERARDO MONTEMAYOR M.D. Referring MD: GUERO RANDLE M.D. (Referring MD) Medicines: Monitored Anesthesia Care in the CCU, See the Anesthesia note for documentation of the administered medications Complications: No immediate complications. Procedure: Pre-Anesthesia Assessment: - Prior to the procedure, a History and Physical was performed, and patient medications, allergies and sensitivities were reviewed. The patient's tolerance of previous anesthesia was reviewed. - The risks and benefits of the procedure and the sedation options and risks were discussed with the patient. All questions were answered and informed consent was obtained. - See the [facility] pre-procedure note for documentation of the pre-procedure assessment. After informed consent was obtained, the scope was passed under direct vision. Throughout the procedure, the patient's blood pressure, pulse, and oxygen saturations were monitored continuously. The Colonoscope was introduced through the anus and advanced to the cecum, identified by appendiceal orifice and ileocecal valve. The colonoscopy was performed without difficulty. The patient tolerated the procedure well. The quality of the bowel preparation was fair. Findings: The perianal and digital rectal examinations were normal. A 2 mm, non-bleeding polyp was found in the cecum. The polyp was sessile. Not resected. A 7 mm, non-bleeding polyp was found in the distal rectum. The polyp was sessile. Not resected. No additional abnormalities were found on retroflexion. Impression: - Preparation of the colon was fair. - One 2 mm, non-bleeding polyp in the cecum. - One 7 mm, non-bleeding polyp in the distal rectum. - No specimens collected. Recommendation: - Return patient to [facility] for ongoing care. - Will need colonoscopy in ~1 year for removal of these polyps - No evidence of colon cancer Attending Participation: I was present and participated during the entire procedure, including non-arriaza portions. Vicente Montemayor MD [id number] GERARDO MONTEMAYOR M.D. 08/23/2023 11:25:05 AM This report has been signed electronically. Number of Addenda: 0 Note Initiated On: 08/21/2023 4:11 PM Guero Randle MD GI PROCEDURE ORDERABLES Final Result from Last 3 Months or Most Recently Relevant to Health Maintenance Insurance [facility] ACO [facility] ACO [facility]CO [facility] ACO [facility] [place] Advance Directives For more information, please contact: [phone] (9AM - 5PM [facility], Thursday-Thursday) Documents on File Type Date Recorded Patient Process Plant Operator Expl anation Healthcare Proxy 08/16/2023 4:44 PM * Full Code (Latest Code Status on File) Date Activated Date Inactivated Comments 10/05/2023 1:51 AM Question Answer Comments Code Status Confirmed With: Patient Code Status Communicated To: Inpatient Attending * Full Code Date Activated Date Inactivated Comments 08/16/2023 5:09 PM 10/05/2023 1:51 AM Question Answer Comments Code Status Confirmed With: Patient Code Status Communicated To: Other (specify belo w) Code Discussion Comments: [facility] Healthcare Agents on File Name Relationship Healthcare Agent Relationship Communication Anshu (HCP) Elvira Son .Primary H ealth Care Agent (Proxy form on file) Care Teams Facilities Operations Technician Relationship Specialty Start Date End Date Guero Randle MD [address] [place] [address] PCP - General Internal Medicine 08/17/23 Additional Source Comments The information contained in this document represents components of the legal health record. It is not the complete legal health record.[facility]
--- OUTSIDE RECORDS SUMMARY | 2025-01-06 12:45 | XMS_ITS | Encounter Summary ---
Author Organization [facility] Address [address] [facility] [address] [place] [address] Phone Care Team Providers Care Diesel Engineer Name Role Phone Al Sy MD Primary Care Provider [phone] Encounter Details Date Type Department Care Team (Late st Contact Info) Description 03/03/2024 Procedure Pass [facility] Cardiac Injection Molding Engineer [address] [place] [address] Social History Tobacco Use Types Packs/Day Years [...] Description 03/30/2025 8:30 AM EST Office Visit [facility] Cardiac Transplant [address] [place] [address] Unknown, UnknownMD documented as of this encounter Visit Diagnoses Not on filedocumented in this encounter Additional Health Concerns Infection Onset Date Last Indicated Resolved Time CDiff-Risk 03/31/2024 03/31/2024 04/01/2024 7:03 AM EST CDiff-Risk 12/20/2024 12/21/2024 12/21/2024 5:39 PM EDT documented as of this encounter Care Teams Diesel Engineer Relationship Specialty Start Date End Date Al Sy MD [address] [place] [address] PCP - General Internal Medicine 08/17/23 documented as of this encounter Additional Source Comments The information contained in this document represents components of the legal health record. It is not the complete legal health record.[facility]
--- OUTSIDE RECORDS SUMMARY | 2025-01-06 12:45 | XMS_ITS | Encounter Summary ---
Author Organization [facility] Address [address] [facility] [address] [place] [address] Phone Care Team Providers Care Cutter Operator Helper Name Role Phone Al Sy MD Primary Care Provider [phone] Encounter Details Date Type Department Care Team (Late st Contact Info) Description 10/04/2023 Procedure Pass [facility] Periop [address] [place] [address] Social History Tobacco Use Types Packs/Day Years [...] Description 03/30/2025 8:30 AM EST Office Visit [facility] Cardiac Transplant [address] [place] [address] Unknown, Unknown, documented as of this encounter Visit Diagnoses Not on filedocumented in this encounter Additional Health Concerns Infection Onset Date Last Indicated Resolved Time CDiff-Risk 03/31/2024 03/31/2024 04/01/2024 7:03 AM EST CDiff-Risk 12/20/2024 12/21/2024 12/21/2024 5:39 PM EDT documented as of this encounter Care Teams Cutter Operator Helper Relationship Specialty Start Date End Date Al Sy MD [address] [place] [id number] PCP - General Internal Medicine 08/17/23 documented as of this encounter Additional Source Comments The information contained in this document represents components of the legal health record. It is not the complete legal health record.[facility]
--- OUTSIDE RECORDS SUMMARY | 2025-01-06 12:45 | XMS_ITS | Encounter Summary ---
Author Organization [facility] Address [address] [facility] [address] [place] [address] Phone Care Team Providers Care Post Office Clerk Name Role Phone Al Sy MD Primary Care Provider [phone] Encounter Details Date Type Department Care Team (Late st Contact Info) Description 03/31/2024 Prep for Surgery [facility] Cardiac Transplant [address] [place] [address] Gretchen Wheat, SANDRA [address] [place] [address] [email or web address] Social History Tobacco Use [...] Visit [facility] Cardiac Transplant [address] [place] [address] Unknown, Unknown, documented as of this encounter Visit Diagnoses Not on filedocumented in this encounter Additional Health Concerns Infection Onset Date Last Indicated Resolved Time CDiff-Risk 03/31/2024 03/31/202404/01/2024 7:03 AM EST CDiff-Risk 12/20/2024 12/21/2024 12/21/2024 5:39 PM EDT documented as of this encounter Care Teams Post Office Clerk Relationship Specialty Start Date End Date Al Sy MD [address] [place] [address] PCP - General Internal Medicine 08/17/23 documented as of this encounter Additional Source Comments The information contained in this document represents components of the legal health record. It is not the complete legal health record.[facility]
--- OUTSIDE RECORDS SUMMARY | 2025-01-06 12:45 | XMS_ITS | Encounter Summary ---
Author Organization [facility] Address [address] [facility] [address] [place] [address] Phone Care Team Providers Care Printing Shop Supervisor Name Role Phone Unknown, Unknown Primary Care Provider Al Monsalve MD Primary Care Provider [phone] Encounter Details Date Type Department Care Team (Late st Contact Info) Description 08/16/2023 Procedure Pass [facility] Echocardiography [address] [place] [address] Social History Tobacco Use Types Packs/Day Years [...] on file documented as of this encounter Functional Status * Calculated C-SSRS Risk Score (Lifetime/Recent) Answer Date of Assessment Author No Risk Indicated 08/16/2023 6:00 PM EDT Nataly Vazquez, RN * [place] Suicide Severity Rating Scale (Screener/Recent Self-Report) Question Answer Date of Assessment Author 1. Wish to be (Past 1 Month) No 024 6:00 PM EDT Nataly Vazquez, RN 2. Non-Specific Active Suici mily Thoughts (Past 1 Month) No 08/16/2023 6:00 PM EDT Carlota Vazquez RN 6. Suicidal Behavior (Lifetime) No 6:00 PM EDT Nataly Vazquez, RN documented as of this encounter Plan of Treatment Upcoming Encounters Date Type Department Care Team (Late st Contact Info) Description 03/30/2025 8:30 AM EST Office Visit [facility] Cardiac Transplant [address] [place] [address] Unknown, Unknown, documented as of this encounter Visit Diagnoses Not on filedocumented in this encounter Additional Health Concerns Infection Onset Date Last Indicated Resolved Time CDiff-Risk 03/31/2024 03/31/2024 04/01/2024 7:03 AM EST CDiff-Risk 12/20/2024 12/21/2024 12/21/2024 5:39 PM EDT documented as of this encounter Care Teams Printing Shop Supervisor Relationship Specialty Start Date End Date Unknown, Hailee, PCP - General 08/13/23 08/16/23 Al Sy MD [address] [place] [address] PCP - General Internal Medicine 08/17/23 documented as of this encounter Additional Source Comments The information contained in this document represents components of the legal health record. It is not the complete legal health record.[facility]
--- OUTSIDE RECORDS SUMMARY | 2025-01-06 12:45 | XMS_ITS | Encounter Summary ---
Author Organization [facility] Address [address] [facility] [address] [place] [address] Phone Care Team Providers Care Application Support Name Role Phone Al Sy MD Primary Care Provider [phone] Encounter Details Date Type Department Care Team (Late st Contact Info) Description 10/03/2023 Telephone [facility]-Transplant Program [address] [place] [address] Jason Gonzalez [address] [place] [address] [email or web address] Social History Tobacco Use Types Packs/Day Years [...] Office Visit [facility] Cardiac Transplant [address] [place] [address] Unknown, Unknown, documented as of this encounter Visit Diagnoses Not on filedocumented in this encounter Additional Health Concerns Infection Onset Date Last Indicated Resolved Time CDiff-Risk 03/31/2024 03/31/2024 04/01/2024 7:03 AM EST CDiff-Risk 12/20/2024 12/21/2024 12/21/2024 5:39 PM EDT documented as of this encounter Care Teams Application Support Relationship Specialty Start Date End Date Al Sy MD [address] [place] [address] PCP - General Internal Medicine 08/17/23 documented as of this encounter Additional Source Comments The information contained in this document represents components of the legal health record. It is not the complete legal health record.[facility]
--- OUTSIDE RECORDS SUMMARY | 2025-01-06 12:45 | XMS_ITS | Encounter Summary ---
Author Organization [facility] Address [address] [facility] [address] [place] [address] Phone Care Team Providers Care Chef Saucier Name Role Phone Al Sy MD Primary Care Provider [phone] Encounter Details Date Type Department Care Team (Late st Contact Info) Description 09/04/2023 Procedure Pass [facility] Echocardiography [address] [place] [address] Social History Tobacco Use Types Packs/Day Years [...] Description 03/30/2025 8:30 AM EST Office Visit [facility] Cardiac Transplant [address] [place] [address] Unknown, Unknown, documented as of this encounter Visit Diagnoses Not on filedocumented in this encounter Additional Health Concerns Infection Onset Date Last Indicated Resolved Time CDiff-Risk 03/31/2024 03/31/2024 04/01/2024 7:03 AM EST CDiff-Risk 12/20/2024 12/21/2024 12/21/2024 5:39 PM EDT documented as of this encounter Care Teams Chef Saucier Relationship Specialty Start Date End Date Al Sy MD [address] [place] [address] PCP - General Internal Medicine 08/17/23 documented as of this encounter Additional Source Comments The information contained in this document represents components of the legal health record. It is not the complete legal health record.[facility]
--- OUTSIDE RECORDS SUMMARY | 2025-01-06 12:45 | XMS_ITS | Encounter Summary ---
Author Organization [facility] Address [address] [facility] [address] [place] [address] Phone Care Team Providers Care Hydraulic Plumber Name Role Phone Al Sy MD Primary Care Provider [phone] Encounter Details Date Type Department Care Team (Late st Contact Info) Description 03/31/2024 Procedure Pass [facility] Cardiac Pleating Machine Operator [address] [place] [address] Social History Tobacco Use Types Packs/Day Years [...] [facility] Cardiac Transplant [address] [place] [address] Unknown, UnknownMD documented as of this encounter Visit Diagnoses Not on filedocumented in this encounter Additional Health Concerns Infection Onset Date Last Indicated Resolved Time CDiff-Risk 03/31/2024 03/31/2024 04/01/2024 7:03 AM EST CDiff-Risk 12/20/2024 12/21/2024 12/21/2024 5:39 PM EDT documented as of this encounter Care Teams Hydraulic Plumber Relationship Specialty Start Date End Date Al Sy MD [address] [place] [id number] PCP - General Internal Medicine 08/17/23 documented as of this encounter Additional Source Comments The information contained in this document represents components of the legal health record. It is not the complete legal health record.[facility]
--- OUTSIDE RECORDS SUMMARY | 2025-01-06 12:45 | XMS_ITS | Encounter Summary ---
Author Organization [facility] Address [address] [facility] [address] [place] [address] Phone Care Team Providers Care Shade Classifier Name Role Phone Al Sy MD Primary Care Provider [phone] Encounter Details Date Type Department Care Team (Late st Contact Info) Description 09/23/2024 Procedure Pass [facility] Cardiac Research Biologist [address] [place] [address] Social History Tobacco Use Types Packs/Day Years [...] Description 03/30/2025 8:30 AM EST Office Visit [facility] Cardiac Transplant [address] [place] [address] Unknown, Unknown, documented as of this encounter Visit Diagnoses Not on filedocumented in this encounter Additional Health Concerns Infection Onset Date Last Indicated Resolved Time CDiff-Risk 12/20/2024 12/21/2024 12/21/2024 5:39 PM EDT documented as of this encounter Care Teams Shade Classifier Relationship Specialty Start Date End Date Al Sy MD [address] [place] [phone] PCP - General Internal Medicine 08/17/23 documented as of this encounter Additional Source Comments The information contained in this document represents components of the legal health record. It is not the complete legal health record.[facility]
--- OUTSIDE RECORDS SUMMARY | 2025-01-06 12:45 | XMS_ITS | Encounter Summary ---
Author Organization [facility] Address [address] [facility] [address] [place] [address] Phone Care Team Providers Care Brothel Keeper Name Role Phone Al Sy MD Primary Care Provider [phone] Encounter Details Date Type Department Care Team (Late st Contact Info) Description 10/12/2023 Procedure Pass [facility] Cardiac High School English Teacher [address] [place] [address] Social History Tobacco Use Types Packs/Day Years [...] Description 03/30/2025 8:30 AM EST Office Visit [facility] Cardiac Transplant [address] [place] [address] Unknown, UnknownMD documented as of this encounter Visit Diagnoses Not on filedocumented in this encounter Additional Health Concerns Infection Onset Date Last Indicated Resolved Time CDiff-Risk 03/31/2024 03/31/2024 04/01/2024 7:03 AM EST CDiff-Risk 12/20/2024 12/21/2024 12/21/2024 5:39 PM EDT documented as of this encounter Care Teams Brothel Keeper Relationship Specialty Start Date End Date Al Sy MD [address] [place] [address] PCP - General Internal Medicine 08/17/23 documented as of this encounter Additional Source Comments The information contained in this document represents components of the legal health record. It is not the complete legal health record.[facility]
[2025-01-06 13:23] LABS: Anion Gap 13 (12-20); Blood Urea Nitrogen 26 mg/dL (9-16); Calcium 9.0 mg/dL (8.4-10.2); Carbon Dioxide 20 mmol/L (22-29); Chloride 114 mmol/L (96-108); Estimated Glomerular Filt Rate > 60; Potassium 4.4 mmol/L (3.3-5.1); Sodium 143 mmol/L (135-145)
[2025-01-07 12:28] LABS: Tacrolimus Prograf 6.8 mcg/L
== END 2025-01-06 11:42 | disposition home or self-care (01) ==
LOC: HO.LAB 11:41
PROVIDERS: PCP Internal Medicine; Visit Provider Nurse Practitioner Adult Health
DX: Z94.1 Heart transplant status (principal)
CPT/HCPCS: 36415; 80048; 80197